=== PATIENT | male | born 1955 | race Caucasian/White ===

== ENCOUNTER 2020-08-20 06:43 | Outpatient (REF) | payer BC, SELFPAY ==
[2020-08-20 07:21] LABS: MANUAL DIFF FLAG NO
[2020-08-20 07:34] LABS: Basophils Percent Auto 0.7 % (0-2); Eosinophils Absolute Auto 0.1 X10*3/uL (0.0-0.4); Eosinophils Percent Auto 1.5 % (0-4); Hematocrit 41.6 % (42-52); Hemoglobin 14.3 g/dl (14.0-18.0); Imm Gran Abs Auto 0.02 X10*3/uL (0.00-0.03); Imm Gran Pct Auto 0.3 % (0.0-0.4); Lymphocytes Absolute Auto 1.5 X10*3/uL (1.2-4.9); Lymphocytes Percent Auto 24.9 % (20-40); Mean Corpuscular HGB Conc 34.4 g/dl (31.0-36.0); Mean Corpuscular Hemoglobin 32.1 pg (27.0-33.0); Mean Corpuscular Volume 93.3 fL (80-98); Mean Platelet Volume 10.2 fL (9.4-12.4); Monocytes Absolute Auto 0.6 X10*3/uL (0.1-1.2); Monocytes Percent Auto 10.6 % (2-11); Neutrophils Absolute Auto 3.6 X10*3/uL (2.0-8.3); Platelet Count 241 X10*3/uL (160-400); Red Blood Count 4.46 X10*6/uL (4.60-5.80); White Blood Count 5.8 X10*3/uL (4.8-10.8)
[2020-08-20 08:02] LABS: Alanine Aminotransferase 31 U/L (0-40); Albumin Level 4.3 g/dL (3.5-5.0); Alkaline Phosphatase 45 U/L (39-117); Anion Gap 10 (12-20); Aspartate Amino Transferase 20 U/L (5-37); Bilirubin Total 0.8 mg/dL (0.0-1.0); Blood Urea Nitrogen 16 mg/dL (9-16); Calcium 9.3 mg/dL (8.4-10.2); Carbon Dioxide 28 mmol/L (22-29); Chloride 105 mmol/L (96-108); Cholesterol 234 mg/dL; Estimated Glomerular Filt Rate > 60; Glucose Fasting 113 mg/dL (60-99); HDL Cholesterol 46 mg/dL; LDL Cholesterol Calculated 160 mg/dl; Potassium 4.1 mmol/l (3.3-5.1); Sodium 139 mmol/L (135-145); Total Protein 6.4 g/dL (6.5-8.0); Triglycerides 141 mg/dL
[2020-08-20 08:24] LABS: Thyroid Stimulating Hormone 2.03 mIU/mL (0.32-4.0)
[2020-08-20 10:31] LABS: Estimated Average Glucose 114 mg/dL; Hemoglobin A1c % 5.6 %
== END 2020-08-20 06:44 | disposition home or self-care (01) ==
LOC: HO.LAB 06:43
PROVIDERS: PCP Physician Assistant; Visit Provider Physician Assistant
DX: R73.01 Impaired fasting glucose (principal); E78.00 Pure hypercholesterolemia, unspecified
CPT/HCPCS: 36415; 80053; 80061; 83036; 84443; 85025

== ENCOUNTER 2021-02-15 06:38 | Outpatient (REF) | payer BC, SELFPAY ==
[2021-02-15 07:29] LABS: Alanine Aminotransferase 26 U/L (0-40); Albumin Level 4.3 g/dL (3.5-5.0); Alkaline Phosphatase 49 U/L (39-117); Anion Gap 13 (12-20); Aspartate Amino Transferase 18 U/L (5-37); Bilirubin Total 0.6 mg/dL (0.0-1.0); Blood Urea Nitrogen 19 mg/dL (9-16); Calcium 9.2 mg/dL (8.4-10.2); Carbon Dioxide 26 mmol/L (22-29); Chloride 105 mmol/L (96-108); Cholesterol 233 mg/dL; Estimated Glomerular Filt Rate > 60; Glucose Fasting 111 mg/dL (60-99); HDL Cholesterol 46 mg/dL; LDL Cholesterol Calculated 144 mg/dl; Potassium 4.1 mmol/L (3.3-5.1); Sodium 140 mmol/L (135-145); Total Protein 6.8 g/dL (6.5-8.0); Triglycerides 216 mg/dL
[2021-02-15 07:50] LABS: Prostate Specific Antigen Scr 4.11 ng/mL (<0.05-4.0)
== END 2021-02-15 06:39 | disposition home or self-care (01) ==
LOC: HO.LAB 06:38
PROVIDERS: PCP Physician Assistant; Visit Provider Physician Assistant
DX: I10 Essential (primary) hypertension (principal); E78.00 Pure hypercholesterolemia, unspecified; E78.5 Hyperlipidemia, unspecified; Z12.5 Encounter for screening for malignant neoplasm of prostate
CPT/HCPCS: 36415; 80053; 80061; 84153

== ENCOUNTER 2021-10-04 06:30 | Outpatient (REF) | payer BC, SELFPAY ==
[2021-10-04 07:42] LABS: Estimated Average Glucose 117 mg/dL; Hemoglobin A1c % 5.7 %
[2021-10-04 07:58] LABS: Alanine Aminotransferase 26 U/L (0-40); Albumin Level 4.2 g/dL (3.5-5.0); Alkaline Phosphatase 56 U/L (39-117); Anion Gap 8 (12-20); Aspartate Amino Transferase 17 U/L (5-37); Bilirubin Total 0.3 mg/dL (0.0-1.0); Blood Urea Nitrogen 16 mg/dL (9-16); Calcium 9.3 mg/dL (8.4-10.2); Carbon Dioxide 31 mmol/L (22-29); Chloride 105 mmol/L (96-108); Cholesterol 238 mg/dL; Estimated Glomerular Filt Rate > 60; Glucose Fasting 111 mg/dL (60-99); HDL Cholesterol 50 mg/dL; LDL Cholesterol Calculated 167 mg/dl; Potassium 4.4 mmol/L (3.3-5.1); Sodium 140 mmol/L (135-145); Total Protein 6.5 g/dL (6.5-8.0); Triglycerides 105 mg/dL
[2021-10-04 08:05] LABS: Prostate Specific Antigen Scr 4.42 ng/mL (<0.05-4.0); TSH reflex Free T4 2.44 uIU/mL (0.32-4.0)
== END 2021-10-04 06:31 | disposition home or self-care (01) ==
LOC: HO.LAB 06:30
PROVIDERS: PCP Physician Assistant; Visit Provider Physician Assistant
DX: E78.00 Pure hypercholesterolemia, unspecified (principal); R73.09 Other abnormal glucose; Z12.5 Encounter for screening for malignant neoplasm of prostate
CPT/HCPCS: 36415; 80053; 80061; 83036; 84153; 84443

== ENCOUNTER 2022-02-08 09:03 | Day surgery (SDC) | payer BC, SELFPAY ==
--- NOTE | 2022-02-07 08:12 | HO.ANESPROP2 ---
Documented by User: Ni Rhodes NP 02/07/22 08:13 HPI - Anesthesia Eval Consult details Narrative: 66yo M for Colonoscopy PMFSH Active Problems Active Problems: All Active Problems (Updated 02/03/22 @ 11:06 by Leia Shelton RN) Hypercholesteremia (Acute) Screening PSA (prostate specific antigen) (Acute) Annual physical exam (Acute) Impaired glucose metabolism (Acute) Elevated PSA (Acute) Past Medical History Medical History (Updated 02/08/22 @ 09:15 by Miriam Correa RN) BPH (benign prostatic hyperplasia) Sleep apnea with use of continuous positive airway pressure (CPAP) Family History Family History Father CAD (coronary artery disease) Mother Heart palpitations Surgical History Surgical History (Updated 02/03/22 @ 11:06 by Leia Shelton RN) Cataract, left eye History of basal cell carcinoma excision Hx of colonoscopy S/P laparoscopic hernia repair Social History Social History Housing: House Alcohol intake: current Alcohol intake frequency: holidays/special occasions only Patient Tobacco Use Status: Former Tobacco user Tobacco use type: Cigarette e-Cigarette/Vaping Use: Never Used Use of substances other than those prescribed or required for medical reasons: No Are you DNR?: No Advance Directives: No Advance Directives Information Provided: Yes Recently lost weight without trying: No Current occupational status: employed Current occupation: [employer] Meds Allergies Allergy/AdvReac Type Severity Reaction Status Date / Time Penicillins Allergy Mild RASH Verified 02/03/22 11:06 Exam Exam Date and Time: February 07, 2022 0812 Pertinent Lab Results Pertinent Lab Results: Laboratory Tests 08/20/20 10/04/21 06:51 06:34 WBC 5.8 Hgb 14.3 Hct 41.6 L Plt Count 241 Sodium 140 Potassium 4.4 Chloride 105 Carbon Dioxide 31 H BUN 16 Creatinine 0.82 Assessment and Plan Assessment Anesthesia Assessment: Chart Reviewed Documented by User: Klarissa Pearce MD 02/08/22 09:32 [facility] Past Medical History Medical History (Updated 02/08/22 @ 09:15 by Miriam Correa, YAJAIRA) BPH (benign prostatic hyperplasia) Sleep apnea with use of continuous positive airway pressure (CPAP) Family History Family History Father CAD (coronary artery disease) Mother Heart palpitations Family history of problems with anesthesia: No Surgical History Surgical History (Updated 02/03/22 @ 11:06 by Leia Shelton RN) Cataract, left eye History of basal cell carcinoma excision Hx of colonoscopy S/P laparoscopic hernia repair History of Problems with Anesthesia: No Social History Social History Housing: House Alcohol intake: current Alcohol intake frequency: holidays/special occasions only Patient Tobacco Use Status: Former Tobacco user Tobacco use type: Cigarette e-Cigarette/Vaping Use: Never Used Use of substances other than those prescribed or required for medical reasons: No Are you DNR?: No Advance Directives: No Advance Directives Information Provided: Yes Recently lost weight without trying: No Current occupational status: employed Current occupation: [employer] Allergies Allergy/AdvReac Type Severity Reaction Status Date / Time Penicillins Allergy Mild RASH Verified 02/03/22 11:06 Exam Airway Mallampati Class: II TM Dist: >3cm Neck ROM: Full Heart: rrr Lungs: cta Assessment and Plan Assessment Anesthesia Assessment: Anesthesia Plan Discussed and Chart Reviewed Final Anesthetic Review Family History of Problems with Anesthesia: No History of Problems with Anesthesia: No NPO: Yes ASA Class: II Final Preanesthetic Review: No Changes in Pt Med Stat, Meds/Allgs Chart Reviewed and Consent Obtained/Reviewed Patient Risk: Intermediate Procedure Risk: Intermediate Anesthetic Plan Anesthetic Plan: MAC: Disposition: Standard PACU
[2022-02-08 09:10] VITALS: BMI 28.7
[2022-02-08 09:21] VITALS: BP 146/75; PULSE 58; RESP 16; TEMP 36.3; O2SAT 98
[2022-02-08] MEDS: Lactated Ringers 1,000 ML 100 ML IVCONT (09:32)
[2022-02-08 11:30] VITALS: BP 114/63; PULSE 60; RESP 16; TEMP 36.6; O2SAT 97
--- NOTE | 2022-02-08 11:30 | P.BOP_ITS ---
Brief Operative Note Date of Service: 02/08/22 Pre-op diagnosis: Screening Post-op diagnosis: other (Diverticulosis) Procedure: Colonoscopy to the cecum and TI Surgeon: Sd Murillo Anesthesia: MAC Was an Telecommunications Clerk used for this Procedure?: No Estimated blood loss (mL): 0 Pathology: none sent Condition: stable Disposition: PACU
[2022-02-08 11:45] VITALS: BP 123/67; PULSE 68; RESP 18; O2SAT 97
--- NOTE | 2022-02-08 12:06 | OP_ITS ---
SURGEON: Sd Murillo MD INDICATIONS: The patient presents for evaluation of colorectal cancer screening and personal history of tubular adenoma of the colon. Full consent was obtained from him for this, including risks of bleeding and perforation. PREOPERATIVE DIAGNOSIS: POSTOPERATIVE DIAGNOSIS: PROCEDURE PERFORMED: ESTIMATED BLOOD LOSS: COMPLICATIONS: ANESTHESIA: Monitored anesthesia care. ASSISTANTS: SPECIMENS: PROCEDURE: Colonoscopy to cecum and terminal ileum. PREOPERATIVE DIAGNOSES: Colorectal cancer screening and personal history of tubular adenoma of the colon. POSTOPERATIVE DIAGNOSES: Colorectal cancer screening and personal history of tubular adenoma of the colon, diverticulosis, and internal hemorrhoids. DESCRIPTION OF PROCEDURE: The patient was placed in the left lateral decubitus position. The digital rectal exam revealed no abnormalities. The Olympus video pediatric colonoscope was entered into the rectum and advanced easily to the cecum. Once in the cecum, I did identify normal-appearing cecal pouch with appendiceal orifice and a normal-appearing ileocecal valve. The terminal ileum was cannulated and appeared normal. The scope was withdrawn back in the colon. The entire cecum and ileocecal valve appeared normal. Scope was slowly withdrawn assessing all mucosal surfaces carefully. Preparation was excellent. I did not visualize any sign of polyps, colitis, nor angiodysplasia. There was mild amount of sigmoid diverticulosis. In the rectum, scope was retroflexed visualizing internal hemorrhoids, but no other pathology. The rectal mucosa appeared normal. The scope was straightened and withdrawn from the patient. He tolerated the procedure well and was returned to recovery area in stable condition. IMPRESSION: 1. Sigmoid diverticulosis. 2. Internal hemorrhoids. PLAN: I would recommend a repeat colonoscopy in 5 years for further screening. He will otherwise see me again on a p.r.n. basis. MD TARAS June/SOILA / [phone]
== END 2022-02-08 12:47 | disposition home or self-care (01) ==
PROVIDERS: PCP Physician Assistant; Visit Provider Internal Medicine
PROC: 0DJD8ZZ Inspection of Lower Intestinal Tract, Via Natural or Artificial Opening Endoscopic (ICD-10-PCS; CPT 45378; principal; 2022-02-08 10:10)
DX: Z12.11 Encounter for screening for malignant neoplasm of colon (principal); Z86.010 Personal history of colon polyps; K57.30 Diverticulosis of large intestine without perforation or abscess without bleeding; K64.8 Other hemorrhoids; N40.0 Benign prostatic hyperplasia without lower urinary tract symptoms; G47.33 Obstructive sleep apnea (adult) (pediatric); Z99.89 Dependence on other enabling machines and devices; Z79.899 Other long term (current) drug therapy; Z88.0 Allergy status to penicillin; Z85.820 Personal history of malignant melanoma of skin; Z87.891 Personal history of nicotine dependence
CPT/HCPCS: 45378

== ENCOUNTER 2022-08-01 06:39 | Outpatient (REF) | payer BC, SELFPAY ==
[2022-08-01 07:38] LABS: Estimated Average Glucose 114 mg/dL; Hemoglobin A1c % 5.6 %; Total Hemoglobin (HGBA1C) 3810.3569 umol/L
[2022-08-01 07:53] LABS: Alanine Aminotransferase 42 U/L (0-40); Albumin Level 4.2 g/dL (3.5-5.0); Alkaline Phosphatase 52 U/L (39-117); Anion Gap 12 (12-20); Aspartate Amino Transferase 20 U/L (5-37); Bilirubin Total 0.7 mg/dL (0.0-1.0); Blood Urea Nitrogen 16 mg/dL (9-16); Calcium 9.2 mg/dL (8.4-10.2); Carbon Dioxide 26 mmol/L (22-29); Chloride 106 mmol/L (96-108); Cholesterol 259 mg/dL; Estimated Glomerular Filt Rate > 60; Glucose Fasting 119 mg/dL (60-99); HDL Cholesterol 48 mg/dL; LDL Cholesterol Calculated 181 mg/dl; Potassium 4.4 mmol/L (3.3-5.1); Sodium 140 mmol/L (135-145); Total Protein 6.8 g/dL (6.5-8.0); Triglycerides 151 mg/dL
[2022-08-01 08:22] LABS: Prostate Specific Antigen Scr 4.98 ng/mL (<0.05-4.0)
== END 2022-08-01 06:40 | disposition home or self-care (01) ==
LOC: HO.LAB 06:39
PROVIDERS: PCP Physician Assistant; Visit Provider Physician Assistant
DX: Z12.5 Encounter for screening for malignant neoplasm of prostate (principal); R73.09 Other abnormal glucose; E78.00 Pure hypercholesterolemia, unspecified
CPT/HCPCS: 36415; 80053; 80061; 83036; 84153

== ENCOUNTER 2023-04-03 06:26 | Outpatient (REF) | payer BC, SELFPAY ==
[2023-04-03 07:41] LABS: Hematocrit 42.6 % (42.0-52.0); Hemoglobin 14.6 g/dl (14.0-18.0); Mean Corpuscular HGB Conc 34.3 g/dl (31.0-36.0); Mean Corpuscular Hemoglobin 31.1 pg (27.0-33.0); Mean Corpuscular Volume 90.8 fL (80.0-98.0); Mean Platelet Volume 9.7 fL (9.4-12.4); Platelet Count 270 X10*3/uL (160-400); Red Blood Count 4.69 X10*6/uL (4.60-5.80); Red Cell Distribution Width 12.7 % (11.0-16.0); White Blood Count 6.3 X10*3/uL (4.8-10.8)
[2023-04-03 08:28] LABS: Alanine Aminotransferase 38 U/L (0-40); Alkaline Phosphatase 57 U/L (39-117); Anion Gap 14 (12-20); Aspartate Amino Transferase 24 U/L (5-37); Bilirubin Total 0.8 mg/dL (0.0-1.0); Blood Urea Nitrogen 18 mg/dL (9-16); Calcium 9.3 mg/dL (8.4-10.2); Carbon Dioxide 26 mmol/L (22-29); Chloride 106 mmol/L (96-108); Cholesterol 241 mg/dL; Estimated Glomerular Filt Rate > 60; Glucose Fasting 120 mg/dL (60-99); HDL Cholesterol 45 mg/dL; LDL Cholesterol Calculated 164 mg/dl; Potassium 4.6 mmol/L (3.3-5.1); Sodium 141 mmol/L (135-145); Total Protein 6.3 g/dL (6.5-8.0); Triglycerides 163 mg/dL
[2023-04-03 08:29] LABS: Prostate Specific Antigen Scr 5.38 ng/mL (<0.05-4.0); TSH reflex Free T4 2.46 uIU/mL (0.32-4.0)
== END 2023-04-03 06:27 | disposition home or self-care (01) ==
LOC: HO.LAB 06:26
PROVIDERS: PCP Physician Assistant; Visit Provider Physician Assistant
DX: Z12.5 Encounter for screening for malignant neoplasm of prostate (principal); R97.20 Elevated prostate specific antigen [PSA]; E78.00 Pure hypercholesterolemia, unspecified
CPT/HCPCS: 36415; 80053; 80061; 84153; 84443; 85027

== ENCOUNTER 2023-05-28 12:51 | Outpatient (AMB) | payer BC, SELFPAY ==
--- NOTE | 2023-05-28 13:03 | A.OFFVIS_ITS ---
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 05/28/23-- The patient complains having urinary symptoms of urgency and weak stream. Denies dysuria, or gross hematuria PSA results reviewed--05/04/23-- 5.38; 08/01/23-- 4.98. AUA symptom score: 13. Prostate exam: moderately enlarged and a nodular area noted at the right apex. Plan: Tamsulosin 0.4 mg QD was ordered. Prostate biopsy discussed to be scheduled. Cipro 500 mg BID a day before the procedure Valium 5 mg prescribed, patient instructed to bring med to office and take 15 min prior to procedure. Risks of prostate biopsy including infections and bleeding were explained to the patient. [facility] Medical History BPH (benign prostatic hyperplasia) Sleep apnea with use of continuous positive airway pressure (CPAP) Surgical History Cataract, left eye History of basal cell carcinoma excision Hx of colonoscopy S/P laparoscopic hernia repair Family History Father CAD (coronary artery disease) Mother Heart palpitations Social History Housing: House Alcohol intake: current Alcohol intake frequency: holidays/special occasions only Patient Tobacco Use Status: Former Tobacco user Tobacco use type: Cigarette e-Cigarette/Vaping Use: Never Used Current occupational status: employed Current occupation: [employer] Cognitive needs: No Hearing needs: No Vision needs: No Review of Systems Const All systems reviewed & are unremarkable except as noted in HPI and below Reports no additional complaints Eyes Reports no additional complaints ENT Denies neck pain Card Denies leg edema Resp Denies cough GI Denies constipation Musc Reports no additional complaints and Denies neck pain Skin/Breast Denies rash and Denies unusual bruising Neuro Reports no additional complaints Psych Reports no additional complaints Endo Reports no additional complaints Poncho/Lymph Reports no additional complaints Aller/Immun Reports no additional complaints Physical Exam Const General: healthy appearing, no acute distress and well developed Orientation/consciousness: patient oriented x3 Eyes Conjunctivae: conjunctivae normal Neck Neck: Yes normal visual inspection Chest Chest palpation & inspection: normal inspection of the chest Resp Effort & Inspection: normal respiratory effort Cardio Rate: regular rate GI Inspection: Yes normal to inspection Palpation (GI): Soft to palpation Other: Prostate Exam: moderately enlarged, nodular area right apex Skin General skin exam: no rashes or lesions noted Neuro General: patient oriented x3 Extrem General: No pedal edema Psych Appearance: grossly normal Affect: normal affect Office Procedures Post Void Residual Post Residual Void Post Void Residual (PVR): 12 [id number] Void Residual by ultrasound Results AMB Urinalysis, Automated UA Leukoctes 0 Aleisha/uL Last Edit by ANALI Melendez on 05/28/23 14:00 UA Nitrite Negative Last Edit by ANALI Melendez on 05/28/23 14:00 UA Urobilinogen 0.2 mg/dL Last Edit by ANALI Melendez on 05/28/23 14:0 0 UA Protein 0 mg/dL Last Edit by ANALI Melendez on 05/28/23 14:00 UA pH 6.0 Last Edit by ANALI Melendez on 05/28/23 14:00 UA Blood 0 Elmer/uL Last Edit by ANALI Melendez on 05/28/23 14:00 UA Specific [place] 1.030 Last Edit by ANALI Melendez on 05/28/23 14: 00 UA Ketone Negative Last Edit by ANALI Melendez on 05/28/23 14:00 UA Bilirubin 0 mg/dL Last Edit by ANALI Melendez on 05/28/23 14:00 UA Glucose 0 mg/dL Last Edit by ANALI Melendez on 05/28/23 14:00 Results Reviewed Results Reviewed: Laboratory Last Values Urine pH (Auto) 6.0 05/28/23 13:54 Specific [place] (Auto) 1.030 05/28/23 13:54 Urine Protein (Auto) 0 mg/dL 05/28/23 13:54 Glucose (UA)(Auto) 0 mg/dL 05/28/23 13:54 Urine Ketones (Auto) Negative 05/28/23 13:54 Urine Blood (Auto) 0 Elmer/uL 05/28/23 13:54 Urine Nitrite (Auto) Negative 05/28/23 13:54 Urine Bilirubin (Auto) 0 mg/dL 05/28/23 13:54 Urine Urobilinogen (Auto) 0.2 mg/dL 05/28/23 13:54 Leukocyte Esterase (Auto) 0 Aleisha/uL 05/28/23 13:54 Assessment & Plan Assessment & Plan (1) Elevated PSA: Code(s): R97.20 - Elevated prostate specific antigen [PSA] (2) BPH loc w urin obs/LUTS: Code(s): N40.1 - Benign prostatic hyperplasia with lower urinary tract symptoms Plan Tamsulosin 0.4 mg QD was ordered. Prostate biopsy discussed to be scheduled. Cipro 500 mg BID a day before the procedure Valium 5 mg prescribed, patient instructed to bring med to office and take 15 min prior to procedure. Risks of prostate biopsy including infections and bleeding were explained to the patient. Orders: Orders AMB Post Void Residual by ultrasound 05/28/23 N39.8 - Other specified disorders of urinary system AMB Urinalysis Automated 05/28/23 Z13.9 - Encounter for screening, unspecified Medications: New ciprofloxacin HCl start one day prior to prostate biopsy and continue to complete 5 day course 500 mg PO BID 10 tabs 0RF diazepam (Valium) Bring to hospital and take in the waiting room prior to prostate biopsy 5 mg PO ONCE 1 tab 0RF tamsulosin 0.4 mg PO BEDTIME 90 caps 2RF Patient Instructions: The patient had an opportunity to ask questions regarding treatment plan. All questions were answered. Laboratory studies and physical exam results were discussed and reviewed in detail. No major barriers to understanding were identified. The patient expressed understanding and agreement with the above treatment plan. The patient is aware they should contact our office by phone for worsening of their current condition or the appearance of new symptoms. Compliance is encouraged with any medications and followup testing that is ordered. It is a privilege to be allowed the opportunity to participate in the urologic care of your patient. If you have any questions or concerns regarding treatment for the above conditions please do not hesitate to contact me. The office telephone contact is [phone]. This note is constructed in part using voice recognition software. While every effort has been made to ensure accuracy general internal medicine doctor errors may have been included. Yours sincerely, Coding Level of Care Code New Pt Level 4 (20308) Diagnoses Elevated PSA R97.20 BPH loc w urin obs/LUTS N40.1 CPT Codes Post Residual Void - PVR CPT Code: 60840-Euvs Void Residual by ultrasound ([id number])
== END 2023-05-28 13:47 | disposition home or self-care (01) ==
PROVIDERS: PCP Physician Assistant; Visit Provider Urology
DX: R97.20 Elevated prostate specific antigen [PSA] (principal); N40.1 Benign prostatic hyperplasia with lower urinary tract symptoms
CPT/HCPCS: 99204

== ENCOUNTER → 2023-05-28 12:51 | Outpatient (BNVA) | payer BC, SELFPAY | PROVIDERS: PCP Physician Assistant; Visit Provider Urology | DX: R97.20 Elevated prostate specific antigen [PSA] (principal); N40.1 Benign prostatic hyperplasia with lower urinary tract symptoms; R35.0 Frequency of micturition; R39.12 Poor urinary stream | CPT/HCPCS: 51798 ==

== ENCOUNTER 2023-08-18 07:10 | Outpatient (REF) | payer BC, SELFPAY ==
[2023-08-18 07:33] LABS: Hemoglobin 15.1 g/dl (14.0-18.0); Mean Corpuscular HGB Conc 34.3 g/dl (31.0-36.0); Mean Corpuscular Hemoglobin 31.3 pg (27.0-33.0); Mean Corpuscular Volume 91.3 fL (80.0-98.0); Mean Platelet Volume 9.8 fL (9.4-12.4); Platelet Count 254 X10*3/uL (160-400); Red Blood Count 4.82 X10*6/uL (4.60-5.80); Red Cell Distribution Width 12.2 % (11.0-16.0); White Blood Count 6.5 X10*3/uL (4.8-10.8)
[2023-08-18 07:45] LABS: Estimated Average Glucose 120 mg/dL; Hemoglobin A1c % 5.8 % (<6.0)
[2023-08-18 08:00] LABS: Alanine Aminotransferase 28 U/L (0-40); Albumin Level 4.1 g/dL (3.5-5.0); Alkaline Phosphatase 56 U/L (39-117); Anion Gap 16 (12-20); Aspartate Amino Transferase 22 U/L (5-37); Bilirubin Total 0.5 mg/dL (0.0-1.0); Blood Urea Nitrogen 17 mg/dL (9-16); Calcium 9.7 mg/dL (8.4-10.2); Carbon Dioxide 23 mmol/L (22-29); Chloride 108 mmol/L (96-108); Cholesterol 226 mg/dL (<200); Estimated Glomerular Filt Rate > 60; Glucose Fasting 116 mg/dL (60-99); HDL Cholesterol 47 mg/dL (>40); LDL Cholesterol Calculated 157 mg/dL (<100); Potassium 4.2 mmol/L (3.3-5.1); Sodium 143 mmol/L (135-145); Total Protein 6.7 g/dL (6.5-8.0); Triglycerides 112 mg/dL (<150)
[2023-08-18 08:21] LABS: Prostate Specific Antigen Scr 5.29 ng/mL (<0.05-4.0)
== END 2023-08-18 07:11 | disposition home or self-care (01) ==
LOC: HO.LAB 07:10
PROVIDERS: PCP Physician Assistant; Visit Provider Physician Assistant
DX: Z12.5 Encounter for screening for malignant neoplasm of prostate (principal); R73.09 Other abnormal glucose; E78.00 Pure hypercholesterolemia, unspecified
CPT/HCPCS: 36415; 80053; 80061; 83036; 84153; 85027

== ENCOUNTER 2023-08-23 13:15 | Outpatient (AMB) | payer BC, SELFPAY ==
--- NOTE | 2023-08-23 13:19 | MHC.PC.OV ---
Vital Signs 08/23/23 13:20 Height 5 ft 6 in Weight 204 lb 4 oz BMI 33.0 BP 100/64 Blood Pressure Location Lt brachial Position Sitting Pulse 59 Pulse Source Pulse Oximeter Pulse Oximetry (%) 96 Oxygen Delivery Method Room Air Intake Visit Reasons: PE Intake Note: Patient is here today for a physical. Grape Cutter Required: No Funeral Planner: Not Required per policy Accompanied by: Self / Same As Patient Allergies Penicillins Allergy (Mild, Verified 08/23/23 13:20) RASH Tobacco use date assessed: 08/23/23 Fall risk assessment: No Falls in past year Last assessed Fall Risk: 08/23/23 Dental Screening Dental Screen Date: 08/23/23 Did you have a dental visit in the last 12 months?: Yes Did you have a dental problem in the last 6 months where you did not have access to dental care?: No Was dental information given to patient?: Patient has dentist HPI PE HPI Details Patient is a 68-year-old male here today for a routine annual physical .? Patient has a past medical history significant for IGM, hypercholesterolemia sleep disturbance, obesity, osteoarthritis of the knees. .. Hypercholesterolemia:? Most recent lipid panel? somewhat improved though still remains borderline high. He has lost a few lb since last office visit and has been watching his diet. .. ? Impaired glucose metabolism: Most recent fasting blood sugars slightly elevated though improved, A1c of 5.8. patient continues to work on reducing carbs and sugary foods. . Obesity: BMI remains above 30. He does report being as physically active and watching his portions of food. . Elevated PSA :? Patient's PSA has been gradually elevating over last 4 years.? Does report urinary frequency and nocturia. Now followed by Urology and is anticipating prostate biopsy. Has tried tamsulosin though felt it was ineffective. Colon cancer screen: Colonoscopy done in 2021 -repeat 5 years .. Vaccine : Up-to-date with tetanus, up-to-date with COVID vaccine. Needs pneumonia and flu vaccine Laboratory Tests 08/01/22 04/03/23 04/03/23 06:52 06:32 06:32 RBC Fasting Glucose 120 H Hemoglobin A1c % 5.6 Cholesterol 241 LDL Cholesterol, C alc PSA Screen 04/03/23 04/03/23 08/18/23 06:32 06:32 07:19 RBC Fasting Glucose Hemoglobin A1c % 5.8 Cholesterol LDL Cholesterol, C alc 164 PSA Screen 5.38 H 08/18/23 08/18/23 08/18/23 07:19 07:19 07:19 RBC 4.82 Fasting Glucose Hemoglobin A1c % Cholesterol 226 H LDL Cholesterol, C alc 157 H PSA Screen 5.29 H 08/18/23 07:19 RBC Fasting Glucose 116 H Hemoglobin A1c % Cholesterol LDL Cholesterol, C alc PSA Screen PFS Medical History Sleep apnea with use of continuous positive airway pressure (CPAP) BPH (benign prostatic hyperplasia) Surgical History Hx of colonoscopy Cataract, left eye History of basal cell carcinoma excision S/P laparoscopic hernia repair Family History Father CAD (coronary artery disease) Mother Heart palpitations Social History Housing: House Alcohol intake: current Alcohol intake frequency: holidays/special occasions only Patient Tobacco Use Status: Former Tobacco user Tobacco use type: Cigarette e-Cigarette/Vaping Use: Never Used Second Hand Smoke Exposure: Yes service: No Current occupational status: employed Current occupation: [employer] Cognitive needs: No Hearing needs: No Vision needs: No Questionnaire Thrive Questionnaire Date Thrive assessed: 04/19/23 EBONIE-7 AMB Questionnaire EBONIE-7 Date EBONIE - 7 assessed: 04/19/23 Source: Developed by Drs. Sd May, Evie Mccann, Reuben Haddad and colleagues, with an educational noé from [employer]. Review of Systems Const Denies body aches, Denies chills, Denies excessive sweating, Denies fatigue, Denies fever(s) and Denies headache(s) Eyes Denies blurry vision ENT Denies dysphagia, Denies vertigo, Denies dizziness, Denies headache(s), Denies hearing loss and Denies tinnitus Card Denies chest pain, Denies chest pain with activity, Denies syncope, Denies irregular heart rhythm and Denies dyspnea Resp Denies chest congestion, Denies cough, Denies hemoptysis, Denies dyspnea and Denies wheezing GI Denies abdominal pain, Denies melena, Denies hematochezia, Denies coffee ground emesis, Denies dysphagia, Denies diarrhea, Denies nausea and Denies vomiting Denies difficulty urinating, Denies dysuria, Denies urinary frequency, Denies urinary hesitancy and Denies urinary urgency Musc Denies arthralgias, Denies limited range of motion, Denies muscle cramps and Denies muscle weakness Skin/Breast Denies rash and Denies skin ulcer Neuro Denies Abnormal speech present, Denies confusion, Denies vertigo, Denies dizziness, Denies syncope, Denies headache(s), Denies memory loss and Denies seizure-like activity Psych Denies anxiety, Denies confusion, Denies depression, Denies memory loss, Denies panic attacks and Denies paranoia Endo Denies excessive sweating, Denies fatigue, Denies flushing, Denies polydipsia and Denies polyuria Aller/Immun Denies wheezing Physical exam (Primary Care) Vital Signs: Last Vital Signs Pulse 59 08/23/23 13:20 BP 100/64 08/23/23 13:20 Pulse Ox 96 08/23/23 13:20 Oxygen Delivery Method Room Air 08/23/23 13:20 BMI result Body Mass Index 33.0 BMI Assessment/Plan discussion: High Tobacco/Smoking Status: Tobacco use Status Tobacco use date assessed 08/23/23 08/23/23 13:23 Patient Tobacco Use Status Former Tobacco user 08/23/23 13:23 Tobacco use type Cigarette 08/23/23 13:23 e-Cigarette/Vaping Use Never Used 08/23/23 13:23 Thrive Assessment: Date of Thrive Assessment Date Thrive assessed 04/19/23 08/23/23 13:23 Const Other: OBESE General: cooperative, comfortable, no acute distress, alert and awake; No confusion Orientation/consciousness: oriented to person, oriented to place, patient oriented x3 and No confusion HENMT Head: Yes normocephalic Ears: external ears normal and TM's normal bilaterally Face and sinus: No sinus tenderness Mouth: Normal oral and palatal mucosa present and tongue normal Teeth and gingiva: dentition normal and gingiva normal Throat: Yes posterior oropharynx normal, Yes tonsils normal and Yes uvula midline Eyes Conjunctivae: conjunctivae normal Sclerae: sclerae normal Pupils: Equal, round and reactive pupils present EOM: EOMs intact bilaterally Direct Ophthalmoscopy: No no photophobia Neck Neck: Yes no lymphadenopathy, No tender and Yes no JVD Thyroid: Thyroid normal Carotids: no bruits Chest Chest palpation & inspection: no tenderness Resp Effort & Inspection: normal respiratory effort, no audible wheezes, not labored and no stridor Auscultation: no crackles, no rales, no rhonchi and no wheezes Cardio Jugular venous distension: no JVD Rate: regular rate, not bradycardic and not tachycardic Rhythm: regular rhythm Bruits: no carotid bruits Peripheral pulses: Peripheral pulses 2+ throughout GI Inspection: Yes normal to inspection, No abdominal wall ecchymosis and No visible herniation Palpation (GI): Soft to palpation, nontender, no guarding, not rigid and No hepatosplenomegaly present Auscultation: normoactive bowel sounds General: Yes no CVA tenderness Back/Spine/Pelvis Back: no CVA tenderness and No back tenderness Cervical Spine: cervical ROM normal Thoracic/Lumbar Spine: thoracic and lumbar spine normal to inspection, straight leg raise negative bilaterally, No thoraco-lumbar ROM limited and No lumbar spinal tenderness Skin Lesions: no lesions Rashes: no rashes Wounds: no wounds Neuro General: oriented to person, oriented to place, patient oriented x3, CN's II-XI intact bilaterally and No confusion Cranial nerves: Yes Equal, round and reactive pupils present and Yes Normal accommodation reflex present Cognition (Neuro): normal cognition Speech: No Abnormal speech present Gait exam (Neuro): Normal gait present Motor exam (neuro): 5/5 motor strength present throughout Extrem Right upper extremity: full ROM; no cyanosis Left upper extremity: full ROM; no cyanosis Right lower extremity: no edema Left lower extremity: no edema Psych Appearance: grossly normal Mental Status: mental status grossly normal Affect: normal affect Attitude: cooperative Thought process: Normal thought process present Office Procedures Flu Questionnaire Does the patient have a severe egg allergy?: No Does the patient have severe life threatening allergies?: Yes Does the patient have a fever or illness today?: No Has the patient ever had Guillain-Wagram Syndrome?: No Has the patient ever had any past reaction to a flu shot?: No Comment: ALLERGIC TO PCN Immunizations flu vacc [id number] 6mos up(PF) 60 mcg(15 mcgx4)/0.5 mL IM syringe Performing Provider: Humberto Ayala PA-C [place] [facility] [place] [facility] Administered by: ANALI Figueroa on 08/23/23 13:23 Dose Route Admin Location Dispensed Lot Number Expiration Date [place] [employer] Consultant 0.5 mL IM Left Deltoid 0.5 mL [id number] 05/18/24 [id number] [id number] VIS Given Date VIS Provided VIS Publication Date 08/23/23 Single Vaccine 21 Eligibility Eligibility Date Funding Source Not VFC Eligible 08/23/23 Private pneumoc 20-dell conj-dip cr(PF) 0.5 mL IM syringe Performing Provider: Humberto Ayala PA-C [place] [facility] [place] [facility] Administered by: Vale Lakhani RN on 08/23/23 13:50 Dose Route Admin Location Dispensed Lot Number Expiration Date [place] [employer] Consultant 0.5 mL IM Right Deltoid 0.5 mL [id number] 09/17/24 [id number] [employer] VIS Given Date VIS Provided VIS Publication Date 08/23/23 Single Vaccine 21 Eligibility Eligibility Date Funding Source Not VFC Eligible 08/23/23 Private Assessment and Plan Assessment & Plan (1) Annual physical exam: Code(s): Z00.00 - Encounter for general adult medical examination without abnormal findings (2) Obese: Code(s): E66.9 - Obesity, unspecified Qualifiers: Body mass index: BMI 33.0-33.9 Obesity classification: adult class 1 (BMI 30 - 34.9) Obesity type: due to excess calories Serious obesity comorbidity presence: without serious comorbidity Qualified Code(s): E66.09 - Other obesity due to excess calories; Z68.33 - Body mass index [BMI] 33.0-33.9, adult Plan: Patient does understand his BMI is over 30 will work on being more physically active and adapting to better eating habits to reduce his weight (3) Hypercholesteremia: Code(s): E78.00 - Pure hypercholesterolemia, unspecified Plan: Patient's most recent lipid panel remains borderline high. Not interested in starting medication at this time would like to continue working on lifestyle modifications. Goal LDL to be below 160 (4) Elevated PSA: Code(s): R97.20 - Elevated prostate specific antigen [PSA] Plan: Most recent PSA still elevated. Now seeing urologist and anticipates a prostate biopsy. (5) Impaired glucose metabolism: Code(s): R73.09 - Other abnormal glucose Plan: Patient's most recent blood sugar slightly elevated, he does understand this is in prediabetic range. A1c of 5.8. He is not interested in starting metformin at this time. He would like to work on lifestyle modifications to reduce his sugars Orders: Orders Influenza [id number] Immunization 08/23/23 Z23 - Encounter for immunization Pneumococcal 20 Immunization 08/23/23 Z23 - Encounter for immunization Hemoglobin A1c 6 Months R73.09 - Other abnormal glucose Lipid Panel 6 Months E78.00 - Pure hypercholesterolemia, unspecified Comprehensive [place]. Panel Fast 6 Months E78.00 - Pure hypercholesterolemia, unspecified Coding Level of Care Code Est Pt Prev Care >65y(92320) Diagnoses Annual physical exam Z00.00 Class 1 obesity due to excess calories without serious comorbidity with body mass index (BMI) of 33.0 to 33.9 in adult E66.09; Z68.33 Body mass index: BMI 33.0-33.9 Obesity classification: adult class 1 (BMI 30 - 34.9) Obesity type: due to excess calories Serious obesity comorbidity presence: without serious comorbidity Hypercholesteremia E78.00 Elevated PSA R97.20 Impaired glucose metabolism R73.09
[2023-08-23 13:20] VITALS: BP 100/64; PULSE 59; O2SAT 96; BMI 33.0
== END 2023-08-23 13:52 | disposition home or self-care (01) ==
PROVIDERS: Visit Provider Physician Assistant
DX: Z23 Encounter for immunization (principal)
CPT/HCPCS: 90471; 90472; 90677; 90686; 99397

== ENCOUNTER 2023-09-28 07:13 | Outpatient (REF) | payer BC, SELFPAY ==
[2023-09-28 07:42] VITALS: BMI 30.1
[2023-09-28 07:43] VITALS: BP 168/79; PULSE 55; RESP 16; TEMP 36.3; O2SAT 97
--- NOTE | 2023-09-28 08:23 | W.PM.OPN ---
Operative Note Operative Note Date of Service: 09/28/23 Narrative: PreOperative Diagnosis:? ? Elevated PSA Post Operative Diagnosis:??Elevated PSA Procedure:?1. Transrectal ultrasound guided biopsy of the prostate 12 core 2. Transrectal ultrasound measurement of prostate 3. Transrectal ultrasound guided pudendal nerve block Surgeon:?Dr Rosemarie Pandya Anesthesia:? Local, Valium 5 mg PO Indications for procedure: Elevated PSA- 04/03/23-5.38, 08/18/23--5.29 Procedure: Preoperative antibiotics confirmed. After informed consent was verified the patient was placed on the procedure table in left lateral position. Patient identity confirmed. Safety pause time-out performed. Digital rectal exam performed to dilate rectal sphincter, iodine mixed with lubricant jelly 30 cc placed per rectum. Ultrasound probe was placed per rectum. The prostate was visualized. The prostate was measured width 5.69 cm, height 4.94 cm, length 5.10 cm with a volume of 75.0 mL. An ultrasound guided pudendal nerve block was performed using 10 cc of 1% lidocaine. A 12 core biopsy was performed from the left base, left mid, left apex and right base, mid, apex 2 biopsies from each section. The ultrasound probe was removed and digital palpation of the prostate for 1-2 minutes for hemostasis was performed. The patient tolerated the procedure well. Complications: None
[2023-09-28 08:55] VITALS: BP 174/81; PULSE 64; RESP 16; O2SAT 97
== END 2023-09-28 07:14 | disposition home or self-care (01) ==
LOC: HO.MS 07:13
PROVIDERS: PCP Physician Assistant; Visit Provider Urology
PROC: (CPT 55700; principal; 2023-09-28 08:00)
DX: R97.20 Elevated prostate specific antigen [PSA] (principal)
CPT/HCPCS: 55700; 76942; 88305

== ENCOUNTER → 2023-09-28 07:13 | Outpatient (BNV) | payer BC, SELFPAY | PROVIDERS: PCP Physician Assistant; Visit Provider Urology | DX: R97.20 Elevated prostate specific antigen [PSA] (principal) | CPT/HCPCS: 55700; 76942 ==

== ENCOUNTER 2023-10-10 11:24 | Outpatient (AMB) | payer BC, SELFPAY ==
--- NOTE | 2023-10-10 11:32 | A.OFFVIS_ITS ---
Intake Intake Visit Reasons: Biopsy results Intake Note: Patient is present for Biopsy Results Allergies Penicillins Allergy (Mild, Verified 08/23/23 13:20) RASH HPI HPI Comments History of Present Illness Details Fco is a 68-year-old male who presents today for a follow-up. 10/10/2023-- He is followed today for biopsy results. PSA results from 08/18/2023 revealed 5.29. He is a status post prostate biopsy for elevated PSA which was done on 09/28/2023. Biopsy results were benign. I have reviewed the US results from 09/28/2023 showed the estimated measurement of the prostate was 75 mL. Review of charts: Last visit: 05/28/23-- The patient complains having urinary symptoms of urgency and weak stream. Denies dysuria, or gross hematuria PSA results reviewed--05/04/23-- 5.38; PSA---08/01/23-- 4.98. AUA symptom score: 13. Prostate exam: moderately enlarged and a nodular area noted at the right apex. 10/10/2023: Plan: Continue tamsulosin and ordered Proscar 5 mg daily Follow-up in one year PSA prior. [facility] Medical History Sleep apnea with use of continuous positive airway pressure (CPAP) BPH (benign prostatic hyperplasia) Surgical History Hx of colonoscopy Cataract, left eye History of basal cell carcinoma excision S/P laparoscopic hernia repair Family History Father CAD (coronary artery disease) Mother Heart palpitations Social History Housing: House Alcohol intake: current Alcohol intake frequency: holidays/special occasions only Patient Tobacco Use Status: Former Tobacco user Tobacco use type: Cigarette e-Cigarette/Vaping Use: Never Used Second Hand Smoke Exposure: Yes service: No Current occupational status: employed Current occupation: [employer] Cognitive needs: No Hearing needs: No Vision needs: No Review of Systems Const All systems reviewed & are unremarkable except as noted in HPI and below Reports no additional complaints Eyes Reports no additional complaints ENT Denies neck pain Card Denies leg edema Resp Denies cough GI Denies constipation Musc Reports no additional complaints and Denies neck pain Skin/Breast Denies rash and Denies unusual bruising Neuro Reports no additional complaints Psych Reports no additional complaints Endo Reports no additional complaints Poncho/Lymph Reports no additional complaints Aller/Immun Reports no additional complaints Results Reviewed Results Reviewed: Prostate biopsy 09/28/2023-- Diagnosis Prostate, needle core biopsies: A. Left base lateral: Benign prostatic tissue. B. Left base medial: Benign prostatic tissue. C. Left mid lateral: Benign prostatic tissue. D. Left mid medial: Benign prostatic tissue. E. Left apex lateral: Benign prostatic tissue. F. Left apex medial: Benign prostatic tissue. G. Right base lateral: Benign prostatic tissue. H. Right base medial: Benign prostatic tissue. I. Right mid lateral: Benign prostatic tissue. J. Right mid medial: Benign prostatic tissue. K. Right apex lateral: Benign prostatic tissue. L. Right apex medial: Benign prostatic tissue. Clinical History Elevated PSA Microscopic Description Microscopic sections show multiple needle cores of benign prostatic parenchyma with scattered foci of chronic inflammation throughout. Material Received A: Left base lateral B: Left base medial C: Left mid lateral D: Left mid medial E: Left apex lateral F: Left apex medial G: Right base lateral H: Right base medial I: Right mid lateral J: Right mid medial K: Right apex lateral L: Right apex medial Gross Description A. Received in formalin labeled ?left base lateral? is a glistening fragment of white soft tissue measuring 0.7 cm in length with a diameter of 0.1 cm which is wrapped in lens paper and entirely submitted for microscopic examination, 1 piece in cassette labeled A B. Received in formalin labeled ?left base medial? is a fragment of glistening, translucent white soft tissue measuring 1.0 cm in length with a diameter of 0.1 cm which is wrapped in lens paper and entirely submitted for microscopic examination, 1 piece in cassette labeled B. C. Received in formalin labeled ?left mid lateral? is a fragment of glistening, translucent white soft tissue measuring 1.0 cm in length with a diameter of 0.1 cm which is wrapped in paper and entirely submitted for microscopic examination, 1 piece in cassette labeled C. D. Received in formalin labeled ?left mid medial? is a fragment of glistening, translucent white soft tissue measuring 1.3 cm in length with a diameter of 0.1 cm which is wrapped in lens paper and entirely submitted for microscopic examination, 1 piece in cassette labeled D. E. Received in formalin labeled ?left apex lateral? is a fragment of glistening, translucent leiva white soft tissue measuring 0.9 cm in length with a diameter of 0.1 cm which is wrapped in lens paper and entirely submitted for microscopic examination, 1 piece in cassette labeled E. F. Received in formalin labeled left apex medial? is a fragment of glistening translucent leiva white soft tissue measuring 1.0 cm in length with a diameter of 0.1 cm which is wrapped in lens paper and entirely submitted for microscopic examination, 1 piece in cassette labeled F. G. Received in formalin labeled ?right base lateral? is a fragment of glistening, translucent white soft tissue measuring 1.0 cm in length with a diameter of 0.1 cm which is wrapped in lens paper and entirely submitted for microscopic examination, 1 piece in cassette labeled G. H. Received in formalin labeled ?right base medial? is a fragment of translucent soft white tissue measuring 1.3 cm in length with a diameter of 0.1 cm which is wrapped in lens paper and entirely submitted for microscopic examination, 1 piece in cassette labeled H. I. Received in formalin labeled ?right mid lateral? is a fragment of glistening, translucent white soft tissue measuring 1.5 cm in length with a diameter of 0.1 cm which is wrapped in lens paper and entirely submitted for microscopic examination, 1 piece in cassette labeled I. J. Received in formalin labeled ?right mid medial is a fragment of glistening, translucent white soft tissue measuring 1.6 cm in length with a diameter of 0.1 cm which is wrapped in lens paper and entirely submitted for microscopic examination, 1 piece in cassette labeled J. K. Received in formalin labeled ?right apex lateral? is a fragment of a glistening, translucent white soft tissue measuring 0.8 cm in length with a diameter of 0.1 cm which is wrapped in lens paper and entirely submitted for microscopic examination, 1 piece in cassette labeled K. L. Received in formalin labeled ?right apex medial? are 2 fragments of translucent white soft tissue measuring 0.6 and 1.4 cm in length. Both have a diameter of 0.1 cm. The specimen is wrapped in lens paper and entirely submitted for microscopic examination, 2 pieces in cassette labeled L Assessment & Plan Assessment & Plan (1) Elevated PSA: Code(s): R97.20 - Elevated prostate specific antigen [PSA] (2) BPH loc w urin obs/LUTS: Code(s): N40.1 - Benign prostatic hyperplasia with lower urinary tract symptoms Plan Continue tamsulosin and ordered Proscar 5 mg daily Follow-up in oney year PSA prior. Medications: New finasteride (Proscar) 5 mg PO DAILY 90 tabs 3RF 90 days C61 - Malignant neoplasm of prostate Patient Instructions: The patient had an opportunity to ask questions regarding treatment plan. All questions were answered. Imaging, Laboratory studies and physical exam results were discussed and reviewed in detail. No major barriers to understanding were identified. The patient expressed understanding and agreement with the above treatment plan. The patient is aware they should contact our office by phone for worsening of their current condition or the appearance of new symptoms. Compliance is encouraged with any medications and followup testing that is ordered. It is a privilege to be allowed the opportunity to participate in the urologic care of your patient. If you have any questions or concerns regarding treatment for the above conditions please do not hesitate to contact me. The office telephone contact is [phone]. This note is constructed in part using voice recognition software. While every effort has been made to ensure accuracy seafood manager errors may have been included. Yours sincerely, Rosemarie Pandya MD Coding Level of Care Code Est Pt Level 4 (91472) Diagnoses Elevated PSA R97.20 BPH loc w urin obs/LUTS N40.1
== END 2023-10-10 11:54 | disposition home or self-care (01) ==
PROVIDERS: PCP Physician Assistant; Visit Provider Urology
DX: R97.20 Elevated prostate specific antigen [PSA] (principal); N40.1 Benign prostatic hyperplasia with lower urinary tract symptoms
CPT/HCPCS: 99214

== ENCOUNTER → 2023-10-10 11:24 | Outpatient (BNVA) | payer BC, SELFPAY | PROVIDERS: PCP Physician Assistant; Visit Provider Urology ==

== ENCOUNTER 2024-02-07 06:32 | Outpatient (REF) | payer BC, SELFPAY ==
[2024-02-07 07:29] LABS: Estimated Average Glucose 128 mg/dL; Hemoglobin A1c % 6.1 % (<6.0)
[2024-02-07 07:36] LABS: Alanine Aminotransferase 38 U/L (0-40); Albumin Level 4.1 g/dL (3.5-5.0); Alkaline Phosphatase 64 U/L (39-117); Anion Gap 12 (12-20); Aspartate Amino Transferase 21 U/L (5-37); Bilirubin Total 0.5 mg/dL (0.0-1.0); Blood Urea Nitrogen 18 mg/dL (9-16); Calcium 9.3 mg/dL (8.4-10.2); Carbon Dioxide 26 mmol/L (22-29); Chloride 107 mmol/L (96-108); Cholesterol 243 mg/dL (<200); Estimated Glomerular Filt Rate > 60; Glucose Fasting 127 mg/dL (60-99); HDL Cholesterol 52 mg/dL (>40); LDL Cholesterol Calculated 171 mg/dL (<100); Potassium 3.9 mmol/L (3.3-5.1); Sodium 141 mmol/L (135-145); Total Protein 6.8 g/dL (6.5-8.0); Triglycerides 104 mg/dL (<150)
== END 2024-02-07 06:33 | disposition home or self-care (01) ==
LOC: HO.LAB 06:32
PROVIDERS: PCP Physician Assistant; Visit Provider Physician Assistant
DX: R73.09 Other abnormal glucose (principal); E78.00 Pure hypercholesterolemia, unspecified
CPT/HCPCS: 36415; 80053; 80061; 83036

== ENCOUNTER 2024-03-04 12:48 | Outpatient (AMB) | payer BC, SELFPAY ==
[2024-03-04 12:49] VITALS: BP 138/78; PULSE 58; O2SAT 97; BMI 29.7
--- NOTE | 2024-03-04 12:49 | MHC.PC.OV ---
Vital Signs 03/04/24 12:49 Height 5 ft 10 in Weight 207 lb 0.4 oz BMI 29.7 BP 138/78 Blood Pressure Location Lt brachial Position Sitting Pulse 58 Pulse Source Pulse Oximeter Pulse Oximetry (%) 97 Oxygen Delivery Method Room Air Intake Visit Reasons: f/u IGM/ HLD- Intake Note: Patient is here to follow up Family Practice Physician Assistant Required: No Allergies Penicillins Allergy (Mild, Verified 03/04/24 12:57) RASH Medication List - Last Reconciled 03/04/24 by Humberto Ayala PA-C finasteride (Proscar) 5 mg PO DAILY 90 days metformin ER 500 mg PO DAILY 30 days tamsulosin 0.4 mg PO BEDTIME Tobacco use date assessed: 03/04/24 Fall risk assessment: No Falls in past year Last assessed Fall Risk: 03/04/24 Dental Screening Dental Screen Date: 03/04/24 HPI f/u IGM/ HLD- HPI Details Patient is a 68-year-old male here today for .? Patient has a past medical history significant for IGM, hypercholesterolemia sleep disturbance, obesity, osteoarthritis of the knees. .. Hypercholesterolemia:? Most recent lipid panel? elevated on most recent lipid panel. He admits to some dietary indiscretion.. He is again not interested in starting any medication will like to work on extensively on lifestyle and dietary modifications. He has lost a few lb since last office visit and has been watching his diet recently. .. ? Impaired glucose metabolism: Most recent fasting blood sugars slightly elevated , A1c elevated at 6.1 from 5.8. Again does admit to dietary indiscretion. patient continues to work on reducing carbs and sugary foods. We have prescribed him metformin 500 though he never picked it up from the pharmacy as he is trying to stay off medication. . Obesity: BMI remains above 30. He does report being as physically active and watching his portions of food. . Elevated PSA :? Has seen Urology and underwent prostate biopsy all with benign findings. Continue to follow PSA on a yearly basis. Laboratory Tests 08/18/23 02/07/24 07:19 06:45 Creatinine 0.84 Fasting Glucose 127 H Hemoglobin A1c % 5.8 6.1 H Cholesterol 226 H 243 H LDL Cholesterol, C alc 157 H 171 H PFSH Medical History Sleep apnea with use of continuous positive airway pressure (CPAP) BPH (benign prostatic hyperplasia) Surgical History Hx of colonoscopy Cataract, left eye History of basal cell carcinoma excision S/P laparoscopic hernia repair Family History Father CAD (coronary artery disease) Mother Heart palpitations Social History Housing: House Alcohol intake: current Alcohol intake frequency: holidays/special occasions only Patient Tobacco Use Status: Former Tobacco user Tobacco use type: Cigarette e-Cigarette/Vaping Use: Never Used Second Hand Smoke Exposure: Yes service: No Current occupational status: employed Current occupation: [employer] Cognitive needs: No Hearing needs: No Vision needs: No Questionnaire Thrive Questionnaire Date Thrive assessed: 03/04/24 I am a: Patient What is your living situation today?: I have a steady place to live Within the past 12 months, did the food you bought not last and you didn't have the money to get more?: Never true Within the past 12 months, did you worry whether your food would run out before you got money to buy more?: Never true Do you have trouble paying for medicines?: No Do you have trouble getting transportation to medical appointments?: No Do you have trouble paying your heating and electricity bill?: No Do you have trouble taking care of your child, family member or friend?: No Do you have trouble with day-to-day activities such as bathing, preparing meals, shopping, managing finances, etc.?: No Are you currently unemployed and looking for a job?: No Are you interested in more education?: No Please select the resources that you would like help with: None Currently or been in a relationship where the following occur: no concerns reported THRIVE Score: 0 AUDIT C Alcohol Use Questionnaire (AUDIT-C) 1. How often do you have a drink containing alcohol?: Monthly or less 2. How many drinks containing alcohol do you have on a typical day when you are drinking?: 1 or 2 3. How often do you have six or more drinks on one occasion?: Never Total Score: 1 EBONIE-7 AMB Questionnaire EBONIE-7 Date EBONIE - 7 assessed: 03/04/24 Source: Developed by Drs. Sd May, Evie Mccann, Reuben Haddad and colleagues, with an educational noé from [employer]. Review of Systems Const Denies headache(s) Eyes Denies loss of vision ENT Denies vertigo, Denies dizziness, Denies headache(s) and Denies sore throat Card Denies chest pain, Denies leg edema and Denies lightheadedness Resp Denies cough, Denies hemoptysis and Denies wheezing GI Denies abdominal pain, Denies melena, Denies constipation, Denies diarrhea and Denies vomiting Denies dysuria, Denies urinary frequency and Denies urinary urgency Musc Denies arthralgias, Denies joint swelling, Denies numbness and Denies tingling Neuro Denies Abnormal speech present, Denies behavioral changes, Denies vertigo, Denies dizziness, Denies headache(s), Denies loss of vision, Denies memory loss, Denies numbness and Denies tingling Psych Denies anxiety, Denies behavioral changes, Denies depression, Denies memory loss and Denies panic attacks Poncho/Lymph Denies easy bleeding and Denies easy bruising Aller/Immun Denies wheezing Physical exam (Primary Care) Vital Signs: Last Vital Signs Pulse 58 03/04/24 12:49 BP 138/78 03/04/24 12:49 Pulse Ox 97 03/04/24 12:49 Oxygen Delivery Method Room Air 03/04/24 12:49 BMI result Body Mass Index 29.7 Tobacco/Smoking Status: Tobacco use Status Tobacco use date assessed 03/04/24 03/04/24 12:53 Patient Tobacco Use Status Former Tobacco user 03/04/24 12:53 Tobacco use type Cigarette 03/04/24 12:53 e-Cigarette/Vaping Use Never Used 03/04/24 12:53 Thrive Assessment: Date of Thrive Assessment Date Thrive assessed 03/04/24 03/04/24 12:53 Currently or been in a relationship where the following occur: no concerns reported Const General: healthy appearing, no acute distress, alert and awake Nutritional Appearance: well nourished Orientation/consciousness: oriented to person, oriented to place and oriented to time HENMT Ears: TM's normal bilaterally General nose exam: Normal nasal mucous membranes and turbinates present Eyes Conjunctivae: conjunctivae normal Sclerae: sclerae normal Pupils: Equal, round and reactive pupils present Neck Neck: Yes no lymphadenopathy and Yes no JVD Thyroid: Thyroid normal Carotids: no bruits Resp Effort & Inspection: normal respiratory effort and not tachypneic Auscultation: no crackles, no rales, no rhonchi and no wheezes Cardio Rate: regular rate Rhythm: regular rhythm Heart sounds: no murmurs and normal S1 and S2 GI Palpation (GI): Soft to palpation, nontender, no hepatomegaly and no splenomegaly Auscultation: normal bowel sounds Skin General skin exam: no rashes or lesions noted and dry skin Neuro General: oriented to person, oriented to place and oriented to time Cranial nerves: Yes Equal, round and reactive pupils present Speech: No Abnormal speech present Gait exam (Neuro): Normal gait present Motor exam (neuro): no tremor noted Extrem Right upper extremity: full ROM Left upper extremity: full ROM Right lower extremity: full ROM; no edema Left lower extremity: full ROM; no edema Psych Mental Status: mental status grossly normal Speech and movement: Normal speech and movement present Affect: normal affect Attitude: cooperative Thought process: Normal thought process present Assessment and Plan Assessment & Plan (1) Obese: Code(s): E66.9 - Obesity, unspecified Qualifiers: Body mass index: BMI 33.0-33.9 Obesity classification: adult class 1 (BMI 30 - 34.9) Obesity type: due to excess calories Serious obesity comorbidity presence: without serious comorbidity Qualified Code(s): E66.09 - Other obesity due to excess calories; Z68.33 - Body mass index [BMI] 33.0-33.9, adult Plan: Patient does understand his BMI is over 30 will work on being more physically active and adapting to better eating habits to reduce his weight (2) Hypercholesteremia: Code(s): E78.00 - Pure hypercholesterolemia, unspecified Plan: Patient's most recent lipid panel remains high. Not interested in starting medication at this time would like to continue working on lifestyle modifications. Goal LDL to be below 160 (3) Elevated PSA: Code(s): R97.20 - Elevated prostate specific antigen [PSA] Plan: Has seen urologist and had gotten prostate biopsy. Randy score 0. Continues to have some nocturia though felt that prostate medication were not helpful. (4) Impaired glucose metabolism: Code(s): R73.09 - Other abnormal glucose Plan: Patient's most recent blood sugar slightly elevated, A1c is 6.1 he does understand this is in prediabetic range. He is not interested in starting metformin at this time. He would like to work on lifestyle modifications to reduce his sugars (5) Dermatitis: Code(s): L30.9 - Dermatitis, unspecified Plan: Has a small rash over bilateral shins. Will supply patient with medicated topical creams. Orders: Orders Comprehensive [place]. Panel Fast 03/04/24 R73.09 - Other abnormal glucose Hemoglobin A1c 03/04/24 R73.09 - Other abnormal glucose Lipid Panel 03/04/24 E78.00 - Pure hypercholesterolemia, unspecified Medications: New clotrimazole-betamethasone 1-0.05 % 1 appl topical BID 30 days 45 grams 0RF L30.9 - Dermatitis, unspecified clotrimazole-betamethasone 1-0.05 % 1 appl topical BID 45 grams 0RF 30 days L30.9 - Dermatitis, unspecified Discontinued metformin ER Discontinued Reason: Doctor's Order 500 mg PO DAILY 30 days 30 tabs 3RF R73.09 - Other abnormal glucose finasteride (Proscar) Discontinued Reason: Doctor's Order 5 mg PO DAILY 90 days 90 tabs 3RF C61 - Malignant neoplasm of prostate tamsulosin Discontinued Reason: Doctor's Order 0.4 mg PO BEDTIME 90 caps 3RF Patient Instructions: Goals: Reduce his A1c and fasting blood sugar. Lose weight. goal A1c to be below 5.7, goal cholesterol to be below 200 Barriers: Difficulty with dietary modifications and being more physically active. Coding Level of Care Code Est Pt Level 4 (57577) Diagnoses Class 1 obesity due to excess calories without serious comorbidity with body mass index (BMI) of 33.0 to 33.9 in adult E66.09; Z68.33 Body mass index: BMI 33.0-33.9 Obesity classification: adult class 1 (BMI 30 - 34.9) Obesity type: due to excess calories Serious obesity comorbidity presence: without serious comorbidity Hypercholesteremia E78.00 Elevated PSA R97.20 Impaired glucose metabolism R73.09 Dermatitis L30.9
== END 2024-03-04 13:27 | disposition home or self-care (01) ==
PROVIDERS: PCP Physician Assistant; Visit Provider Physician Assistant
DX: E66.09 Other obesity due to excess calories (principal); Z68.33 Body mass index [BMI] 33.0-33.9, adult; E78.00 Pure hypercholesterolemia, unspecified; R97.20 Elevated prostate specific antigen [PSA]; R73.09 Other abnormal glucose; L30.9 Dermatitis, unspecified
CPT/HCPCS: 99214

== ENCOUNTER 2024-08-25 06:41 | Outpatient (REF) | payer BC, SELFPAY ==
[2024-08-25 08:00] LABS: Estimated Average Glucose 117 mg/dL; Hemoglobin A1C 143.2193 umol/L; Hemoglobin A1c % 5.7 % (<6.0); Total Hemoglobin (HGBA1C) 3678.3799 umol/L
[2024-08-25 08:31] LABS: Alanine Aminotransferase 41 U/L (0-40); Albumin Level 4.2 g/dL (3.5-5.0); Alkaline Phosphatase 57 U/L (39-117); Anion Gap 9 (12-20); Aspartate Amino Transferase 21 U/L (5-37); Bilirubin Total 0.8 mg/dL (0.0-1.0); Blood Urea Nitrogen 22 mg/dL (9-16); Calcium 9.6 mg/dL (8.4-10.2); Carbon Dioxide 27 mmol/L (22-29); Chloride 112 mmol/L (96-108); Cholesterol 268 mg/dL (<200); Estimated Glomerular Filt Rate > 60; Glucose Fasting 125 mg/dL (60-99); HDL Cholesterol 55 mg/dL (>40); LDL Cholesterol Calculated 182 mg/dL (<100); Potassium 4.4 mmol/L (3.3-5.1); Sodium 144 mmol/L (135-145); Total Protein 6.8 g/dL (6.5-8.0); Triglycerides 155 mg/dL (<150)
== END 2024-08-25 06:42 | disposition home or self-care (01) ==
LOC: HO.LAB 06:41
PROVIDERS: PCP Physician Assistant; Visit Provider Physician Assistant
DX: R73.09 Other abnormal glucose (principal); E78.00 Pure hypercholesterolemia, unspecified
CPT/HCPCS: 36415; 80053; 80061; 83036

== ENCOUNTER 2024-09-09 14:03 | Outpatient (AMB) | payer BC, SELFPAY ==
--- NOTE | 2024-09-09 14:10 | MHC.PC.OV ---
Intake Visit Reasons: PE Intake Note: Patient is here today for a physical. 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: No Accompanied by: Self / Same As Patient Allergies Penicillins Allergy (Mild, Verified 09/09/24 14:32) RASH Medication List - Last Reconciled 09/09/24 by Humberto Ayala PA-C clotrimazole-betamethasone 1-0.05 % 1 appl topical BID 30 days Tobacco use date assessed: 03/04/24 Fall risk assessment: No Falls in past year Last assessed Fall Risk: 09/09/24 Dental Screening Dental Screen Date: 09/09/24 Did you have a dental visit in the last 12 months?: Yes Did you have a dental problem in the last 6 months where you did not have access to dental care?: No Was dental information given to patient?: Patient has dentist HPI PE HPI Details Patient is a 69-year-old male here today for a routine annual physical .? Patient has a past medical history significant for IGM, hypercholesterolemia sleep disturbance, obesity, osteoarthritis of the knees. .. Hypercholesterolemia:? Most recent lipid panel?showing elevated total cholesterol and LDL. He admits to some dietary indiscretion.. He is again not interested in starting any medication will like to work on extensively on lifestyle and dietary modifications. He has lost a few lb since last office visit and has been watching his diet recently. .. ? Impaired glucose metabolism: Most recent fasting blood sugars slightly elevated fasting blood sugar though A1c is improved to 5.7.. He has lost weight since last office visit . . Elevated PSA :? Has seen Urology and underwent prostate biopsy all with benign findings. Continue to follow PSA on a yearly basis. Colon cancer screen: Colonoscopy done in 2021 -repeat 5 years .. Vaccine : Up-to-date with tetanus, up-to-date with COVID vaccine. UTD pneumonia and flu vaccine Laboratory Tests 02/07/24 08/25/24 06:45 06:53 Creatinine 0.89 Fasting Glucose 125 H Hemoglobin A1c % 6.1 H 5.7 Cholesterol 243 H 268 H LDL Cholesterol, C alc 171 H 182 H PFSH Medical History Sleep apnea with use of continuous positive airway pressure (CPAP) BPH (benign prostatic hyperplasia) Surgical History Hx of colonoscopy Cataract, left eye History of basal cell carcinoma excision S/P laparoscopic hernia repair Family History Father CAD (coronary artery disease) Mother Heart palpitations Social History (Updated 09/09/24 @ 14:36 by Humberto Ayala PA-C) Housing: House Alcohol intake: current Alcohol intake frequency: holidays/special occasions only Patient Tobacco Use Status: Former Tobacco user Tobacco use type: Cigarette e-Cigarette/Vaping Use: Never Used Second Hand Smoke Exposure: Yes service: No Current occupational status: employed Current occupation: [employer] Cognitive needs: No Hearing needs: No Vision needs: No Questionnaire PHQ-9 Over the last 2 weeks, how often have you been bothered by any of the following problems? 1. Little interest or pleasure in doing things: not at all 2. Feeling down, depressed, or hopeless: not at all 3. Trouble falling or staying asleep, or sleeping too much: not at all 4. Feeling tired or having little energy: not at all 5. Poor appetite or overeating: not at all 6. Feeling bad about yourself - or that you are a failure or have let yourself or your family down: not at all 7. Trouble concentrating on things, such as reading the newspaper or watching television: not at all 8. Moving or speaking so slowly that other people could have noticed. Or the opposite - being so fidgety or restless that you have been moving around a lot more than usual: not at all 9. Thoughts that you would be better off or of hurting yourself in some way: not at all Total score: 0 Depression Screening Interpretation: Negative Depression Screening Done: Yes 79292 - PHQ-9 Billing: Yes Source: Developed by Drs. Sd May, Evie Mccann, Reuben Haddad and colleagues, with an educational noé from [employer] Thrive Questionnaire Date Thrive assessed: 09/09/24 I am a: Patient What is your living situation today?: I have a steady place to live Within the past 12 months, did the food you bought not last and you didn't have the money to get more?: Never true Within the past 12 months, did you worry whether your food would run out before you got money to buy more?: Never true Do you have trouble paying for medicines?: No Do you have trouble getting transportation to medical appointments?: No Do you have trouble paying your heating and electricity bill?: No Do you have trouble taking care of your child, family member or friend?: No Do you have trouble with day-to-day activities such as bathing, preparing meals, shopping, managing finances, etc.?: No Are you currently unemployed and looking for a job?: No Are you interested in more education?: No Please select the resources that you would like help with: None Currently or been in a relationship where the following occur: No concerns reported THRIVE Score: 0 AUDIT C Alcohol Use Questionnaire (AUDIT-C) 1. How often do you have a drink containing alcohol?: Monthly or less 2. How many drinks containing alcohol do you have on a typical day when you are drinking?: 1 or 2 3. How often do you have six or more drinks on one occasion?: Never Total Score: 1 EBONIE-7 AMB Questionnaire EBONIE-7 Date EBONIE - 7 assessed: 09/09/24 Feeling nervous, anxious, or on edge: 0 = Not at all Not being able to stop or control worryin = Not at all Worrying too much about different things: 0 = Not at all Trouble relaxin = Not at all Being so restless that it is hard to sit still: 0 = Not at all Becoming easily annoyed or irritable: 0 = Not at all Feeling afraid as if something awful might happen: 0 = Not at all Total EBONIE-7 score (0-4 normal; 5-9 mild; 10-14 moderate; 15-21 severe): 0 Source: Developed by Drs. Sd May, Evie Mccann, Reuben Haddad and colleagues, with an educational noé from [employer] EBONIE-7 Assessment Billing EBONIE-7 Assessment Tool: EBONIE-7 Assessment 58078 Review of Systems Const Denies body aches, Denies chills, Denies excessive sweating, Denies fatigue, Denies fever(s) and Denies headache(s) Eyes Denies blurry vision ENT Denies dysphagia, Denies vertigo, Denies dizziness, Denies headache(s), Denies hearing loss and Denies tinnitus Card Denies chest pain, Denies chest pain with activity, Denies syncope, Denies irregular heart rhythm and Denies dyspnea Resp Denies chest congestion, Denies cough, Denies hemoptysis, Denies dyspnea and Denies wheezing GI Denies abdominal pain, Denies melena, Denies hematochezia, Denies coffee ground emesis, Denies dysphagia, Denies diarrhea, Denies nausea and Denies vomiting Denies difficulty urinating, Denies dysuria, Denies urinary frequency, Denies urinary hesitancy and Denies urinary urgency Musc Denies arthralgias, Denies limited range of motion, Denies muscle cramps and Denies muscle weakness Skin/Breast Denies rash and Denies skin ulcer Neuro Denies Abnormal speech present, Denies confusion, Denies vertigo, Denies dizziness, Denies syncope, Denies headache(s), Denies memory loss and Denies seizure-like activity Psych Denies anxiety, Denies confusion, Denies depression, Denies memory loss, Denies panic attacks and Denies paranoia Endo Denies excessive sweating, Denies fatigue, Denies flushing, Denies polydipsia and Denies polyuria Aller/Immun Denies wheezing Physical exam (Primary Care) Tobacco/Smoking Status: Tobacco use Status Tobacco use date assessed 03/04/24 09/09/24 14:11 Patient Tobacco Use Status Former Tobacco user 09/09/24 14:11 Tobacco use type Cigarette 09/09/24 14:11 e-Cigarette/Vaping Use Never Used 09/09/24 14:11 PHQ-9: PHQ-9 Score PHQ-9: Total score 0 09/09/24 14:11 Depression Screening Interpretation: Negative Thrive Assessment: Date of Thrive Assessment Date Thrive assessed 09/09/24 09/09/24 14:11 Currently or been in a relationship where the following occur: No concerns reported Const General: cooperative, comfortable, no acute distress, alert and awake; No confusion Orientation/consciousness: oriented to person, oriented to place, patient oriented x3 and No confusion HENMT Head: Yes normocephalic Ears: external ears normal and TM's normal bilaterally Face and sinus: No sinus tenderness Mouth: Normal oral and palatal mucosa present and tongue normal Teeth and gingiva: dentition normal and gingiva normal Throat: Yes posterior oropharynx normal, Yes tonsils normal and Yes uvula midline Eyes Conjunctivae: conjunctivae normal Sclerae: sclerae normal Pupils: Equal, round and reactive pupils present EOM: EOMs intact bilaterally Direct Ophthalmoscopy: No no photophobia Neck Neck: Yes no lymphadenopathy, No tender and Yes no JVD Thyroid: Thyroid normal Carotids: no bruits Chest Chest palpation & inspection: no tenderness Resp Effort & Inspection: normal respiratory effort, no audible wheezes, not labored and no stridor Auscultation: no crackles, no rales, no rhonchi and no wheezes Cardio Jugular venous distension: no JVD Rate: regular rate, not bradycardic and not tachycardic Rhythm: regular rhythm Bruits: no carotid bruits Peripheral pulses: Peripheral pulses 2+ throughout GI Inspection: Yes normal to inspection, No abdominal wall ecchymosis and No visible herniation Palpation (GI): Soft to palpation, nontender, no guarding, not rigid and No hepatosplenomegaly present Auscultation: normoactive bowel sounds General: Yes no CVA tenderness Back/Spine/Pelvis Back: no CVA tenderness and No back tenderness Cervical Spine: cervical ROM normal Thoracic/Lumbar Spine: thoracic and lumbar spine normal to inspection, straight leg raise negative bilaterally, No thoraco-lumbar ROM limited and No lumbar spinal tenderness Skin Lesions: no lesions Rashes: no rashes Wounds: no wounds Neuro General: oriented to person, oriented to place, patient oriented x3, CN's II-XI intact bilaterally and No confusion Cranial nerves: Yes Equal, round and reactive pupils present and Yes Normal accommodation reflex present Cognition (Neuro): normal cognition Speech: No Abnormal speech present Gait exam (Neuro): Normal gait present Motor exam (neuro): 5/5 motor strength present throughout Extrem Right upper extremity: full ROM; no cyanosis Left upper extremity: full ROM; no cyanosis Right lower extremity: no edema Left lower extremity: no edema Psych Appearance: grossly normal Mental Status: mental status grossly normal Affect: normal affect Attitude: cooperative Thought process: Normal thought process present Office Procedures Flu Questionnaire Does the patient have a severe egg allergy?: No Does the patient have severe life threatening allergies?: No Does the patient have a fever or illness today?: No Has the patient ever had Guillain-Clinton Syndrome?: No Has the patient ever had any past reaction to a flu shot?: No Immunizations Fluarix Triv [id number] (PF) 45 mcg (15 mcg x 3)/0.5 mL IM syringe Performing Provider: Humberto Ayala PA-C [facility] [place] [facility] Administered by: LORAINE Desai on 09/09/24 14:21 Dose Route Admin Location Dispensed Lot Number Expiration Date NDC [employer] 0.5 mL IM Left Deltoid 0.5 mL [id number] 05/18/25 [id number] Invested[employer] VIS Given Date VIS Provided VIS Publication Date 09/09/24 Single Vaccine 21 Eligibility Eligibility Date Funding Source Not [facility] Eligible 09/09/24 Private Coding Level of Care Code Est Pt Prev Care >65y(60958) Diagnoses Annual physical exam Z00.00 Impaired glucose metabolism R73.09 Hypercholesteremia E78.00 Elevated PSA R97.20 Additional Codes EBONIE-7 Assessment Billing - EBONIE-7 Assessment Tool: EBONIE-7 Assessment 46955 ([id number]) Assessment & Plan Assessment & Plan (1) Annual physical exam: Code(s): Z00.00 - Encounter for general adult medical examination without abnormal findings Category: Medical Plan: As per HPI (2) Impaired glucose metabolism: Code(s): R73.09 - Other abnormal glucose Category: Medical Plan: Most recent fasting blood sugar and A1c have improved. He will continue working on lifestyle dietary modifications to reduce his sugars. (3) Hypercholesteremia: Code(s): E78.00 - Pure hypercholesterolemia, unspecified Category: Medical Plan: Most recent fasting lipid panel showing elevated total cholesterol and LDL. He is not interested in starting cholesterol medication at this point. Goal total cholesterol to be below 230 and LDL to be below 160 (4) Elevated PSA: Code(s): R97.20 - Elevated prostate specific antigen [PSA] Category: Medical Plan: Patient has a history of elevated PSA, was evaluated by Urology in gotten biopsies though were benign findings. Will continue to follow PSA. He otherwise denies any urination symptoms. Orders: Orders Prostate Specific Antigen Scr Today R97.20 - Elevated prostate specific antigen [PSA], Z12.5 - Encounter for screening for malignant neoplasm of prostate Comprehensive [place]. Panel Fast Today E78.00 - Pure hypercholesterolemia, unspecified Complete Blood Count no Diff Today E78.00 - Pure hypercholesterolemia, unspecified Lipid Panel Today E78.00 - Pure hypercholesterolemia, unspecified Influenza [id number] Immunization Today Z23 - Encounter for immunization Hemoglobin A1c Today R73.09 - Other abnormal glucose Patient Instructions: Goal: Total cholesterol to be 230 Barriers: Adherence to physical activity and healthy eating habits
== END 2024-09-09 14:56 | disposition home or self-care (01) ==
PROVIDERS: PCP Physician Assistant; Visit Provider Physician Assistant
DX: Z00.00 Encounter for general adult medical examination without abnormal findings (principal); R73.09 Other abnormal glucose; E78.00 Pure hypercholesterolemia, unspecified; R97.20 Elevated prostate specific antigen [PSA]; Z23 Encounter for immunization

== ENCOUNTER → 2024-09-09 14:03 | Outpatient (BNVA) | payer BC, SELFPAY | PROVIDERS: PCP Physician Assistant; Visit Provider Physician Assistant | DX: Z00.00 Encounter for general adult medical examination without abnormal findings (principal); R73.09 Other abnormal glucose; E78.00 Pure hypercholesterolemia, unspecified; R97.20 Elevated prostate specific antigen [PSA]; Z23 Encounter for immunization | CPT/HCPCS: 90471; 90656; 96127 ==

== ENCOUNTER 2024-10-08 06:28 | Outpatient (REF) | payer BC, SELFPAY ==
[2024-10-08 08:11] LABS: Prostate Specific Antigen 4.64 ng/mL (<0.05-4.0)
== END 2024-10-08 06:29 | disposition home or self-care (01) ==
LOC: HO.LAB 06:28
PROVIDERS: PCP Physician Assistant; Visit Provider Urology
DX: Z12.5 Encounter for screening for malignant neoplasm of prostate (principal)
CPT/HCPCS: 36415; 84153

== ENCOUNTER 2024-10-10 11:22 | Outpatient (AMB) | payer BC, SELFPAY ==
--- NOTE | 2024-10-10 02:42 | A.OFFVIS_ITS ---
Intake Visit Reasons: 1y follow up/PSA? Intake Note: NEW Patient presents today for 1y F/U PSA Meds-NONE Allergies to Antibiotic- Penicillins Blood Thinner- None Head Butler Required: No Accompanied by: Self / Same As Patient Allergies Penicillins Allergy (Mild, Verified 10/10/24 11:27) RASH Medication List - Last Reconciled 10/10/24 by Rosemarie Pandya MD clotrimazole-betamethasone 1-0.05 % 1 appl topical BID 30 days finasteride (Proscar) 5 mg PO DAILY 90 days HPI Comments Details: 10/10/24-- Fco is a 69-year-old male who presents today for a one year FU for elevated PSA and BPH. He denies irritative voiding symptoms. He states he is voiding without difficulty. Continue tamsulosin and ordered Proscar 5 mg daily Follow-up in one year PSA prior. Review of charts: 10/10/2023--Fco is a 68-year-old male who presents today for a follow-up. He is followed today for biopsy results. PSA results from 08/18/2023 revealed 5.29. He is a status post prostate biopsy for elevated PSA which was done on 09/28/2023. Biopsy results were benign. I have reviewed the US results from 09/28/2023 showed the estimated measurement of the prostate was 75 mL. 05/28/23-- The patient complains having urinary symptoms of urgency and weak stream. Denies dysuria, or gross hematuria PSA results reviewed--05/04/23-- 5.38; PSA---08/01/23-- 4.98. AUA symptom score: 13. Prostate exam: moderately enlarged and a nodular area noted at the right apex. [facility] Medical History Sleep apnea with use of continuous positive airway pressure (CPAP) BPH (benign prostatic hyperplasia) Surgical History Hx of colonoscopy Cataract, left eye History of basal cell carcinoma excision S/P laparoscopic hernia repair Family History Father CAD (coronary artery disease) Mother Heart palpitations Social History (Updated 09/09/24 @ 14:36 by Humberto Ayala PA-C) Housing: House Alcohol intake: current Alcohol intake frequency: holidays/special occasions only Patient Tobacco Use Status: Former Tobacco user Tobacco use type: Cigarette e-Cigarette/Vaping Use: Never Used Second Hand Smoke Exposure: Yes service: No Current occupational status: employed Current occupation: [employer] Cognitive needs: No Hearing needs: No Vision needs: No Review of Systems Const All systems reviewed & are unremarkable except as noted in HPI and below Reports no additional complaints Eyes Reports no additional complaints ENT Reports no additional complaints Card Reports no additional complaints Resp Reports no additional complaints GI Reports no additional complaints Reports as per HPI Musc Reports no additional complaints Skin/Breast Reports system reviewed and no additional complaints, except as documented Neuro Reports no additional complaints Psych Reports no additional complaints Endo Reports no additional complaints Poncho/Lymph Reports no additional complaints Aller/Immun Reports no additional complaints Results AMB Urinalysis, Automated UA Leukoctes Aleisha/uL Last Edit by LORAINE Carney on 10/10/24 11:32 UA Nitrite Negative Last Edit by LORAINE Carney on 10/10/24 11:32 UA Urobilinogen 0.2 mg/dL Last Edit by LORAINE Carney on 10/10/24 11:3 2 UA Protein 0 mg/dL Last Edit by LORAINE Carney on 10/10/24 11:32 UA pH 6.0 Last Edit by LORAINE Carney on 10/10/24 11:32 UA Blood 0 Elmer/uL Last Edit by LORAINE Carney on 10/10/24 11:32 UA Specific [place] 1.020 Last Edit by LORAINE Carney on 10/10/24 11: 32 UA Ketone Negative Last Edit by LORAINE Carney on 10/10/24 11:32 UA Bilirubin 0 mg/dL Last Edit by LORAINE Carney on 10/10/24 11:32 UA Glucose 0 mg/dL Last Edit by LORAINE Carney on 10/10/24 11:32 Results Reviewed Results Reviewed: Laboratory Last Values Urine pH (Auto) 6.0 10/10/24 11:31 Specific [place] (Auto) 1.020 10/10/24 11:31 Urine Protein (Auto) 0 mg/dL 10/10/24 11:31 Glucose (UA)(Auto) 0 mg/dL 10/10/24 11:31 Urine Ketones (Auto) Negative 10/10/24 11:31 Urine Blood (Auto) 0 Elmer/uL 10/10/24 11:31 Urine Nitrite (Auto) Negative 10/10/24 11:31 Urine Bilirubin (Auto) 0 mg/dL 10/10/24 11:31 Urine Urobilinogen (Auto) 0.2 mg/dL 10/10/24 11:31 Prostate biopsy 09/28/2023-- Diagnosis Prostate, needle core biopsies: A. Left base lateral: Benign prostatic tissue. B. Left base medial: Benign prostatic tissue. C. Left mid lateral: Benign prostatic tissue. D. Left mid medial: Benign prostatic tissue. E. Left apex lateral: Benign prostatic tissue. F. Left apex medial: Benign prostatic tissue. G. Right base lateral: Benign prostatic tissue. H. Right base medial: Benign prostatic tissue. I. Right mid lateral: Benign prostatic tissue. J. Right mid medial: Benign prostatic tissue. K. Right apex lateral: Benign prostatic tissue. L. Right apex medial: Benign prostatic tissue. Clinical History Elevated PSA Microscopic Description Microscopic sections show multiple needle cores of benign prostatic parenchyma with scattered foci of chronic inflammation throughout. Material Received A: Left base lateral B: Left base medial C: Left mid lateral D: Left mid medial E: Left apex lateral F: Left apex medial G: Right base lateral H: Right base medial I: Right mid lateral J: Right mid medial K: Right apex lateral L: Right apex medial Gross Description A. Received in formalin labeled ?left base lateral? is a glistening fragment of white soft tissue measuring 0.7 cm in length with a diameter of 0.1 cm which is wrapped in lens paper and entirely submitted for microscopic examination, 1 piece in cassette labeled A B. Received in formalin labeled ?left base medial? is a fragment of glistening, translucent white soft tissue measuring 1.0 cm in length with a diameter of 0.1 cm which is wrapped in lens paper and entirely submitted for microscopic examination, 1 piece in cassette labeled B. C. Received in formalin labeled ?left mid lateral? is a fragment of glistening, translucent white soft tissue measuring 1.0 cm in length with a diameter of 0.1 cm which is wrapped in paper and entirely submitted for microscopic examination, 1 piece in cassette labeled C. D. Received in formalin labeled ?left mid medial? is a fragment of glistening, translucent white soft tissue measuring 1.3 cm in length with a diameter of 0.1 cm which is wrapped in lens paper and entirely submitted for microscopic examination, 1 piece in cassette labeled D. E. Received in formalin labeled ?left apex lateral? is a fragment of glistening, translucent leiva white soft tissue measuring 0.9 cm in length with a diameter of 0.1 cm which is wrapped in lens paper and entirely submitted for microscopic examination, 1 piece in cassette labeled E. F. Received in formalin labeled left apex medial? is a fragment of glistening translucent leiva white soft tissue measuring 1.0 cm in length with a diameter of 0.1 cm which is wrapped in lens paper and entirely submitted for microscopic examination, 1 piece in cassette labeled F. G. Received in formalin labeled ?right base lateral? is a fragment of glistening, translucent white soft tissue measuring 1.0 cm in length with a diameter of 0.1 cm which is wrapped in lens paper and entirely submitted for microscopic examination, 1 piece in cassette labeled G. H. Received in formalin labeled ?right base medial? is a fragment of translucent soft white tissue measuring 1.3 cm in length with a diameter of 0.1 cm which is wrapped in lens paper and entirely submitted for microscopic examination, 1 piece in cassette labeled H. I. Received in formalin labeled ?right mid lateral? is a fragment of glistening, translucent white soft tissue measuring 1.5 cm in length with a diameter of 0.1 cm which is wrapped in lens paper and entirely submitted for microscopic examination, 1 piece in cassette labeled I. J. Received in formalin labeled ?right mid medial is a fragment of glistening, translucent white soft tissue measuring 1.6 cm in length with a diameter of 0.1 cm which is wrapped in lens paper and entirely submitted for microscopic examination, 1 piece in cassette labeled J. K. Received in formalin labeled ?right apex lateral? is a fragment of a glistening, translucent white soft tissue measuring 0.8 cm in length with a diameter of 0.1 cm which is wrapped in lens paper and entirely submitted for microscopic examination, 1 piece in cassette labeled K. L. Received in formalin labeled ?right apex medial? are 2 fragments of translucent white soft tissue measuring 0.6 and 1.4 cm in length. Both have a diameter of 0.1 cm. The specimen is wrapped in lens paper and entirely submitted for microscopic examination, 2 pieces in cassette labeled L Assessment & Plan Assessment & Plan (1) Elevated PSA: Code(s): R97.20 - Elevated prostate specific antigen [PSA] Category: Medical (2) BPH loc w urin obs/LUTS: Code(s): N40.1 - Benign prostatic hyperplasia with lower urinary tract symptoms Category: Medical Plan Continue tamsulosin and ordered Proscar 5 mg daily Follow-up in oney year PSA prior. Orders: Orders AMB Urinalysis Automated 10/10/24 Z13.9 - Encounter for screening, unspecified Prostate Specific Antigen 10/08/24 Z12.5 - Encounter for screening for malignant neoplasm of prostate Medications: New finasteride (Proscar) 5 mg PO DAILY 90 tabs 3RF 90 days Coding Level of Care Code Est Pt Level 3 (86012) Diagnoses Elevated PSA R97.20 BPH loc w urin obs/LUTS N40.1
== END 2024-10-10 11:50 | disposition home or self-care (01) ==
PROVIDERS: PCP Physician Assistant; Visit Provider Urology
DX: Z13.9 Encounter for screening, unspecified (principal)
CPT/HCPCS: 99213

== ENCOUNTER → 2024-10-10 11:22 | Outpatient (BNVA) | payer BC, SELFPAY | PROVIDERS: PCP Physician Assistant; Visit Provider Urology | DX: R97.20 Elevated prostate specific antigen [PSA] (principal); N40.1 Benign prostatic hyperplasia with lower urinary tract symptoms; N13.8 Other obstructive and reflux uropathy; Z79.899 Other long term (current) drug therapy | CPT/HCPCS: 81003 ==

== ENCOUNTER 2025-03-04 06:31 | Outpatient (REF) | payer BC, SELFPAY ==
[2025-03-04 07:25] LABS: Estimated Average Glucose 137 mg/dL; Hemoglobin A1c % 6.4 % (<6.0); Total Hemoglobin (HGBA1C) 3951.4946 umol/L
[2025-03-04 07:54] LABS: Hematocrit 43.3 % (42.0-52.0); Hemoglobin 15.1 g/dl (14.0-18.0); Mean Corpuscular HGB Conc 34.9 g/dl (31.0-36.0); Mean Corpuscular Hemoglobin 31.8 pg (27.0-33.0); Mean Corpuscular Volume 91.2 fL (80.0-98.0); Mean Platelet Volume 9.8 fL (9.4-12.4); Platelet Count 238 X10*3/uL (160-400); Red Blood Count 4.75 X10*6/uL (4.60-5.80); Red Cell Distribution Width 12.3 % (11.0-16.0); White Blood Count 5.7 X10*3/uL (4.8-10.8)
[2025-03-04 08:02] LABS: Alanine Aminotransferase 57 U/L (0-40); Albumin Level 4.1 g/dL (3.5-5.0); Alkaline Phosphatase 56 U/L (39-117); Anion Gap 10 (12-20); Aspartate Amino Transferase 33 U/L (5-37); Bilirubin Total 0.6 mg/dL (0.0-1.0); Blood Urea Nitrogen 19 mg/dL (9-16); Calcium 9.3 mg/dL (8.4-10.2); Carbon Dioxide 26 mmol/L (22-29); Chloride 108 mmol/L (96-108); Cholesterol 258 mg/dL (<200); Estimated Glomerular Filt Rate > 60; Glucose Fasting 131 mg/dL (60-99); HDL Cholesterol 48 mg/dL (>40); LDL Cholesterol Calculated 166 mg/dL (<100); Potassium 4.2 mmol/L (3.3-5.1); Sodium 140 mmol/L (135-145); Total Protein 6.6 g/dL (6.5-8.0); Triglycerides 223 mg/dL (<150)
[2025-03-04 08:15] LABS: Prostate Specific Antigen Scr 4.81 ng/mL (<0.05-4.0)
== END 2025-03-04 06:32 | disposition home or self-care (01) ==
LOC: HO.LAB 06:31
PROVIDERS: PCP Physician Assistant; Visit Provider Physician Assistant
DX: E78.00 Pure hypercholesterolemia, unspecified (principal); Z12.5 Encounter for screening for malignant neoplasm of prostate; R97.20 Elevated prostate specific antigen [PSA]; R73.09 Other abnormal glucose
CPT/HCPCS: 36415; 80053; 80061; 83036; 84153; 85027

== ENCOUNTER 2025-03-10 13:56 | Outpatient (AMB) | payer BC, SELFPAY ==
--- NOTE | 2025-03-10 14:01 | A.OFFPC_ITS ---
Vital Signs 03/10/25 14:02 Height 5 ft 10 in Weight 218 lb 2 oz BMI 31.3 BP 144/72 H Blood Pressure Location Lt brachial Position Sitting Pulse 63 Pulse Source Pulse Oximeter Temp 97.3 F Temp Source Temporal Artery Scan Pulse Oximetry (%) 96 Oxygen Delivery Method Room Air Intake Visit Reasons: 6mth f/u Chief Of Staff Doctor Required: No Accompanied by: Self / Same As Patient Allergies Penicillins Allergy (Mild, Verified 03/10/25 14:09) RASH finasteride Adverse Reaction (Intermediate, Verified 03/10/25 14:19) Dizziness Medication List - Last Reconciled 03/10/25 by Humberto Ayala PA-C clotrimazole-betamethasone 1-0.05 % 1 appl topical BID 30 days finasteride (Proscar) 5 mg PO DAILY 90 days Tobacco use date assessed: 03/10/25 Fall risk assessment: No Falls in past year Last assessed Fall Risk: 03/10/25 Dental Screening Dental Screen Date: 03/10/25 Did you have a dental visit in the last 12 months?: Yes Did you have a dental problem in the last 6 months where you did not have access to dental care?: No Was dental information given to patient?: Patient has dentist HPI 6mth f/u HPI Details Patient is a 69-year-old male here today for a follow-up visit .? Patient has a past medical history si gnificant for IGM, hypercholesterolemia sleep disturbance, obesity, osteoarthritis of the knees. .. Hypercholesterolemia:? Most recent lipid panel?showing elevated total cholesterol and LDL. He admits to some dietary indiscretion.. He is again not interested in starting any medication will like to work on extensively on lifestyle and dietary modifications. .. ? Impaired glucose metabolism: Most recent fasting blood sugars slightly elevated fasting blood sugar and A1c in prediabetic range at 6.4. He has unfortunately gained weight .. Class 1 obesity: Patient does understand his BMI is over 30 will work on being more physically active and adapting to better eating habits to reduce his weight . . Elevated PSA :? Has seen Urology and underwent prostate biopsy all with benign findings. He was given finasteride 5 mg though felt side effects to this medication.. Continue to follow PSA on a yearly basis. Laboratory Tests 08/25/24 03/04/25 06:53 06:45 Fasting Glucose 125 H 131 H Hemoglobin A1c % 5.7 6.4 H Cholesterol 268 H 258 H LDL Cholesterol, C alc 182 H 166 H PSA Screen 4.81 H PFSH Medical History Sleep apnea with use of continuous positive airway pressure (CPAP) BPH (benign prostatic hyperplasia) Surgical History Hx of colonoscopy Cataract, left eye History of basal cell carcinoma excision S/P laparoscopic hernia repair Family History Father CAD (coronary artery disease) Mother Heart palpitations Social History Housing: House Alcohol intake: current Alcohol intake frequency: holidays/special occasions only Patient Tobacco Use Status: Former Tobacco user Tobacco use type: Cigarette e-Cigarette/Vaping Use: Never Used Second Hand Smoke Exposure: Yes service: No Current occupational status: employed Current occupation: [employer] Cognitive needs: No Hearing needs: No Vision needs: No Questionnaire PHQ-9 Over the last 2 weeks, how often have you been bothered by any of the following problems? 1. Little interest or pleasure in doing things: not at all 2. Feeling down, depressed, or hopeless: not at all 3. Trouble falling or staying asleep, or sleeping too much: not at all 4. Feeling tired or having little energy: not at all 5. Poor appetite or overeating: not at all 6. Feeling bad about yourself - or that you are a failure or have let yourself or your family down: not at all 7. Trouble concentrating on things, such as reading the newspaper or watching television: not at all 8. Moving or speaking so slowly that other people could have noticed. Or the opposite - being so fidgety or restless that you have been moving around a lot more than usual: not at all 9. Thoughts that you would be better off or of hurting yourself in some way: not at all Total score: 0 Depression Screening Interpretation: Negative Depression Screening Done: Yes 68060 - PHQ-9 Billing: Yes Source: Developed by Drs. Sd May, Reuben Evans and colleagues, with an educational noé from [employer]. Thrive Questionnaire Date Thrive assessed: 03/10/25 I am a: Patient What is your living situation today?: I have a steady place to live Within the past 12 months, did the food you bought not last and you didn't have the money to get more?: Never true Within the past 12 months, did you worry whether your food would run out before you got money to buy more?: Never true Do you have trouble paying for medicines?: No Do you have trouble getting transportation to medical appointments?: No Do you have trouble paying your heating and electricity bill?: No Do you have trouble taking care of your child, family member or friend?: No Do you have trouble with day-to-day activities such as bathing, preparing meals, shopping, managing finances, etc.?: No Are you currently unemployed and looking for a job?: No Are you interested in more education?: No Please select the resources that you would like help with: None Currently or been in a relationship where the following occur: No concerns reported THRIVE Score: 0 AUDIT C Alcohol Use Questionnaire (AUDIT-C) 1. How often do you have a drink containing alcohol?: Monthly or less 2. How many drinks containing alcohol do you have on a typical day when you are drinking?: 1 or 2 3. How often do you have six or more drinks on one occasion?: Never Total Score: 1 EBONIE-7 AMB Questionnaire EBONIE-7 Date EBONIE - 7 assessed: 03/10/25 Feeling nervous, anxious, or on edge: 0 = Not at all Not being able to stop or control worryin = Not at all Worrying too much about different things: 0 = Not at all Trouble relaxin = Not at all Being so restless that it is hard to sit still: 0 = Not at all Becoming easily annoyed or irritable: 0 = Not at all Feeling afraid as if something awful might happen: 0 = Not at all Total EBONIE-7 score (0-4 normal; 5-9 mild; 10-14 moderate; 15-21 severe): 0 Source: Developed by Drs. Sd May, Reuben Evans and colleagues, with an educational noé from [employer]. EBONIE-7 Assessment Billing EBONIE-7 Assessment Tool: EBONIE-7 Assessment 53673 Review of Systems Const Denies headache(s) Eyes Denies loss of vision ENT Denies vertigo, Denies dizziness, Denies headache(s) and Denies sore throat Card Denies chest pain, Denies leg edema and Denies lightheadedness Resp Denies cough, Denies hemoptysis and Denies wheezing GI Denies abdominal pain, Denies melena, Denies constipation, Denies diarrhea and Denies vomiting Denies dysuria, Denies urinary frequency and Denies urinary urgency Musc Denies arthralgias, Denies joint swelling, Denies numbness and Denies tingling Neuro Denies Abnormal speech present, Denies behavioral changes, Denies vertigo, Denies dizziness, Denies headache(s), Denies loss of vision, Denies memory loss, Denies numbness and Denies tingling Psych Denies anxiety, Denies behavioral changes, Denies depression, Denies memory loss and Denies panic attacks Poncho/Lymph Denies easy bleeding and Denies easy bruising Aller/Immun Denies wheezing Physical exam (Primary Care) Vital Signs: Last Vital Signs Temp 97.3 F 03/10/25 14:02 Pulse 63 03/10/25 14:02 BP 144/72 H 03/10/25 14:02 Pulse Ox 96 03/10/25 14:02 Oxygen Delivery Method Room Air 03/10/25 14:02 Care Plan Goal for BP management: Patient's blood pressure elevated today, not interested in starting medication Next steps: Patient will work on lifestyle and dietary modifications to reduce his weight and his blood pressure BMI result Body Mass Index 31.3 BMI Assessment/Plan discussion: High BMI High, discussed plan: lifestyle, weight reduction, dietary and physical activity Tobacco/Smoking Status: Tobacco use Status Tobacco use date assessed 03/10/25 03/10/25 14:09 Patient Tobacco Use Status Former Tobacco user 03/10/25 14:03 Tobacco use type Cigarette 03/10/25 14:03 e-Cigarette/Vaping Use Never Used 03/10/25 14:03 PHQ-9: PHQ-9 Score PHQ-9: Total score 0 03/10/25 14:11 Depression Screening Interpretation: Negative Thrive Assessment: Date of Thrive Assessment Date Thrive assessed 03/10/25 03/10/25 14:03 Currently or been in a relationship where the following occur: No concerns reported Const General: healthy appearing, no acute distress, alert and awake Nutritional Appearance: well nourished Orientation/consciousness: oriented to person, oriented to place and oriented to time HENMT Ears: TM's normal bilaterally General nose exam: Normal nasal mucous membranes and turbinates present Eyes Conjunctivae: conjunctivae normal Sclerae: sclerae normal Pupils: Equal, round and reactive pupils present Neck Neck: Yes no lymphadenopathy and Yes no JVD Thyroid: Thyroid normal Carotids: no bruits Resp Effort & Inspection: normal respiratory effort and not tachypneic Auscultation: no crackles, no rales, no rhonchi and no wheezes Cardio Rate: regular rate Rhythm: regular rhythm Heart sounds: no murmurs and normal S1 and S2 GI Palpation (GI): Soft to palpation, nontender, no hepatomegaly and no splenomegaly Auscultation: normal bowel sounds Skin General skin exam: no rashes or lesions noted and dry skin Neuro General: oriented to person, oriented to place and oriented to time Cranial nerves: Yes Equal, round and reactive pupils present Speech: No Abnormal speech present Gait exam (Neuro): Normal gait present Motor exam (neuro): no tremor noted Extrem Right upper extremity: full ROM Left upper extremity: full ROM Right lower extremity: full ROM; no edema Left lower extremity: full ROM; no edema Psych Mental Status: mental status grossly normal Speech and movement: Normal speech and movement present Affect: normal affect Attitude: cooperative Thought process: Normal thought process present Coding Level of Care Code Est Pt Level 4 (27880) Diagnoses Hypercholesteremia E78.00 Elevated blood pressure reading R03.0 Impaired glucose metabolism R73.09 Primary osteoarthritis of both knees M17.0 Osteoarthritis type: primary Class 1 obesity E66.811 Additional Codes EBONIE-7 Assessment Billing - EBONIE-7 Assessment Tool: EBONIE-7 Assessment 93542 ([id number]) PHQ-9 - 26516 - PHQ-9 Billing: Yes ([id number]) Assessment & Plan Assessment & Plan (1) Hypercholesteremia: Code(s): E78.00 - Pure hypercholesterolemia, unspecified Category: Medical Plan: Recommend dietary adjustments and regular monitoring to manage cholesterol levels. (2) Elevated blood pressure reading: Code(s): R03.0 - Elevated blood-pressure reading, without diagnosis of hypertension Category: Medical Plan: Patient continues to decline offers to start antihypertensive medication. Monitor blood pressure at home and promote lifestyle changes. Avoided medication due to borderline levels. (3) Impaired glucose metabolism: Code(s): R73.09 - Other abnormal glucose Category: Medical Plan: Patient's most recent A1c elevated at 6.4 from 5.7. He does understand he is in a prediabetic range. Advise weight loss, diet, and exercise to prevent diabetes progression. (4) Degenerative arthritis of knee, bilateral: Code(s): M17.0 - Bilateral primary osteoarthritis of knee Category: Medical Qualifiers: Osteoarthritis type: primary Qualified Code(s): M17.0 - Bilateral primary osteoarthritis of knee Plan: Encourage continued physiotherapy and weight management, consider imaging if pain persists and limits function. (5) Class 1 obesity: Code(s): E66.811 - Obesity, class 1 Category: Medical Plan: Patient does understand his BMI is over 30 will work on being more physically active and adapting to better eating habits to reduce his weight Orders: Orders Lipid Panel 03/10/25 E78.00 - Pure hypercholesterolemia, unspecified Complete Blood Count no Diff 03/10/25 R73.09 - Other abnormal glucose Hemoglobin A1c 03/10/25 R73.09 - Other abnormal glucose Comprehensive [place]. Panel Fast 03/10/25 R73.09 - Other abnormal glucose
[2025-03-10 14:02] VITALS: BP 144/72; PULSE 63; TEMP 36.3; O2SAT 96; BMI 31.3
--- OUTSIDE RECORDS SUMMARY | 2025-03-10 16:43 | XMS_ITS | Patient Health Record ---
Author Organization [facility] Address [address] [place] [id number] Care Team Providers Care Lumber Sticker Name Role Phone Humberto Ayala Primary Care Provider Sd Hood Unavailable [phone] Allergies Allergen (clinical drug ingredient) Drug/Non Drug Allergy documented on EMR Reaction Allergy Type Onset Date Status Penicillin Unknown Drug Allergy Active Reason For Referral No Information Medications Medication SIG (Take, Route, Frequency, Duration) Notes Start Date End Date Status Flomax 0.4 MG 1 capsule Orally Onc e a day for 30 day(s) Active Immunizations Vaccine Route Administration Date Status Comme nts Influenza Unknown 07/20/2021 Administered Problems Problem Type SNOMED Code ICD Code Onset Dates Problem Status W/U Status Risk Notes Problem 144864036 Encounter for screening for malignant neoplasm of colon (Z12.11) Active confirmed Problem 176842646 History of adenomatous polyp of colon (Z86.010) Active confirmed Problem [id number] Preprocedural examination (Z01.818) Active confirmed Problem History of polyp of colon (situation) (226583007) History of colon polyps (Z86.010) Active confirmed Problem Diverticulosis of colon (953920856) Diverticulosis of colon (K57.30) Active confirmed Plan Of Treatment Future Test Test Name Order Date COLONOSCOPY 05/05/2015 COLONOSCOPY 01/03/2022 Insurance Providers Payer Name Payer Address Payer Phone Subscriber Number Group Number Insured Name Patient Relationship to Insured Coverage Start Date Coverage End Date [facility] [employer] [address] [place] [address] [id number] [id number] [id number] Self - patient is the insured Medical (General) History Medical History History ICD Code Denies MT,DM,CVA,Lung disease,renal dise ase In 2007 he underwent a scree see colonoscopy with removal of a flat tubular adenoma from the ascending colon--he had a negative followup colonoscopy in June of 2010. He was found to have some diverticulosis and internal hemorrhoids. Colonoscopy 01/2016 with small tubular ad enomas removed BPH Surgical History Surgery Date(Month/Year) Melanoma removed from his back Inguinal hernias
== END 2025-03-10 14:31 | disposition home or self-care (01) ==
LOC: HO.HMCH 13:57
PROVIDERS: PCP Physician Assistant; Visit Provider Physician Assistant
DX: E78.00 Pure hypercholesterolemia, unspecified (principal); R03.0 Elevated blood-pressure reading, without diagnosis of hypertension; Z68.31 Body mass index [BMI] 31.0-31.9, adult; E66.811 Obesity, class 1; R73.09 Other abnormal glucose; M17.0 Bilateral primary osteoarthritis of knee

== ENCOUNTER → 2025-03-10 13:56 | Outpatient (BNVA) | payer BC, SELFPAY | PROVIDERS: PCP Physician Assistant; Visit Provider Physician Assistant | DX: E78.00 Pure hypercholesterolemia, unspecified (principal); R03.0 Elevated blood-pressure reading, without diagnosis of hypertension; R73.09 Other abnormal glucose; M17.0 Bilateral primary osteoarthritis of knee; E66.811 Obesity, class 1; Z68.31 Body mass index [BMI] 31.0-31.9, adult; R97.20 Elevated prostate specific antigen [PSA] | CPT/HCPCS: 96127 ==

== ENCOUNTER 2025-03-31 06:38 | Outpatient (REF) | payer BC, SELFPAY ==
--- OUTSIDE RECORDS SUMMARY | 2025-03-31 06:41 | XMS_ITS | Patient Health Record ---
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 Name Role Phone Humberto Ayala Primary Care Provider Sd Hood Unavailable [phone] Allergies Allergen (clinical drug ingredient) Drug/Non Drug [...] Problem Status W/U Status Risk Notes Problem 802136006 Encounter for screening for malignant neoplasm of colon (Z12.11) Active confirmed Problem 343718893 History of adenomatous polyp of colon (Z86.010) Active confirmed Problem 973647188423640 Preprocedural examination (Z01.818) Active confirmed Problem History of colon polyps (Z86.010) Active confirmed Problem Diverticulosis of colon (292899992) Diverticulosis of colon (K57.30) Active confirmed Plan Of Treatment Future Test Test Name Order Date COLONOSCOPY 05/05/2015 COLONOSCOPY 01/03/2022 Insurance Providers Payer Name Payer Address Payer Phone Subscriber Number Group Number Insured Name Patient Relationship to Insured Coverage Start Date Coverage End Date [facility] [address] [place] [address] [id number] FABI HAYNES Self - patient is the insured Medical (General) History Medical History History ICD Code Denies [place],DM,CVA,Lung disease,renal dise ase In 2007 he underwent [...]
[2025-03-31 07:07] LABS: Hematocrit 43.4 % (42.0-52.0); Hemoglobin 14.8 g/dl (14.0-18.0); Mean Corpuscular HGB Conc 34.1 g/dl (31.0-36.0); Mean Corpuscular Hemoglobin 31.3 pg (27.0-33.0); Mean Corpuscular Volume 91.8 fL (80.0-98.0); Mean Platelet Volume 9.6 fL (9.4-12.4); Platelet Count 245 X10*3/uL (160-400); Red Blood Count 4.73 X10*6/uL (4.60-5.80); Red Cell Distribution Width 12.6 % (11.0-16.0); White Blood Count 5.7 X10*3/uL (4.8-10.8)
[2025-03-31 07:16] LABS: Estimated Average Glucose 137 mg/dL; Hemoglobin A1C 180.8077 umol/L; Hemoglobin A1c % 6.4 % (<6.0); Total Hemoglobin (HGBA1C) 3907.0233 umol/L
[2025-03-31 07:34] LABS: Alanine Aminotransferase 81 U/L (0-40); Albumin Level 4.1 g/dL (3.5-5.0); Alkaline Phosphatase 67 U/L (39-117); Anion Gap 14 (12-20); Aspartate Amino Transferase 34 U/L (5-37); Bilirubin Total 0.3 mg/dL (0.0-1.0); Blood Urea Nitrogen 16 mg/dL (9-16); Carbon Dioxide 22 mmol/L (22-29); Chloride 108 mmol/L (96-108); Cholesterol 263 mg/dL (<200); Estimated Glomerular Filt Rate > 60; Glucose Fasting 148 mg/dL (60-99); HDL Cholesterol 47 mg/dL (>40); LDL Cholesterol Calculated 174 mg/dL (<100); Potassium 4.1 mmol/L (3.3-5.1); Sodium 140 mmol/L (135-145); Total Protein 6.8 g/dL (6.5-8.0); Triglycerides 212 mg/dL (<150)
== END 2025-03-31 06:39 | disposition home or self-care (01) ==
LOC: HO.LAB 06:38
PROVIDERS: PCP Physician Assistant; Visit Provider Urology
DX: R73.09 Other abnormal glucose (principal); E78.00 Pure hypercholesterolemia, unspecified
CPT/HCPCS: 36415; 80053; 80061; 83036; 85027

== ENCOUNTER 2025-04-09 08:25 | Outpatient (AMB) | payer BC, SELFPAY ==
--- NOTE | 2025-04-09 08:25 | A.OFFVIS_ITS ---
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 The patient had a prostate biopsy for an elevated PSA of 5.38. Prostate biopsies came back benign. The patient was started on Proscar, 5 alpha reductase inhibitor therapy. Results discussed include repeat PSA performed 03/04/2025 was 4.81 ng/mL. Plan will be further evaluation with MRI of the prostate. 10/10/24-- Fco is a 69-year-old male who presents today for a one year FU for elevated PSA and BPH. He denies irritative voiding symptoms. He states he is voiding without difficulty. Continue tamsulosin and ordered Proscar 5 mg daily Follow-up in one year PSA prior. 10/10/2023--Fco is a 68-year-old male who presents today for a follow-up. He is followed today for biopsy results. PSA results from 08/18/2023 revealed 5.29. He is a status post prostate biopsy for elevated PSA which was done on 09/28/2023. Biopsy results were benign. I have reviewed the US results from 09/28/2023 showed the estimated measurement of the prostate was 75 mL. 05/28/23-- The patient complains having urinary symptoms of urgency and weak stream. Denies dysuria, or gross hematuria PSA results reviewed--05/04/23-- 5.38; PSA---08/01/23-- 4.98. AUA symptom score: 13. Prostate exam: moderately enlarged and a nodular area noted at the right apex. [facility] Medical History Sleep apnea with use of continuous positive airway pressure (CPAP) BPH (benign prostatic hyperplasia) Surgical History Hx of colonoscopy Cataract, left eye History of basal cell carcinoma excision S/P laparoscopic hernia repair Family History Father CAD (coronary artery disease) Mother Heart palpitations Social History Housing: House Alcohol intake: current Alcohol intake frequency: holidays/special occasions o nly Patient Tobacco Use Status: Former Tobacco user Tobacco use type: Cigarette e-Cigarette/Vaping Use: Never Used Second Hand Smoke Exposure: Yes service: No Current occupational status: employed Current occupation: [employer] Cognitive needs: No Hearing needs: No Vision needs: No Review of Systems Const All systems reviewed & are unremarkable except as noted in HPI and below Reports no additional complaints Eyes Reports no additional complaints ENT Reports no additional complaints Card Reports no additional complaints Resp Reports no additional complaints GI Reports no additional complaints Reports as per HPI Musc Reports no additional complaints Skin/Breast Reports system reviewed and no additional complaints, except as documented Neuro Reports no additional complaints Psych Reports no additional complaints Endo Reports no additional complaints Poncho/Lymph Reports no additional complaints Aller/Immun Reports no additional complaints Telehealth Telehealth Telehealth Platform: [facility] Location of provider rendering services: practice address Location of patient: address on file Patient Identification confirmed using: Name, : Yes Telehealth method: video Patient verbally consented to treatment: Yes Patient verbally consented to billing insurance company: Yes Patient informed of any privacy concerns related to visit: Yes Assessment & Plan Assessment & Plan (1) Elevated PSA: Code(s): R97.20 - Elevated prostate specific antigen [PSA] Category: Medical (2) BPH loc w urin obs/LUTS: Code(s): N40.1 - Benign prostatic hyperplasia with lower urinary tract symptoms Category: Medical Plan Continue finasteride. Plan will be further evaluation with MRI of the prostate. Orders: Orders MR Prostate wo/w con 3 Months R97.20 - Elevated prostate specific antigen [PSA] Medications: Refilled finasteride (Proscar) 5 mg PO DAILY 90 days 90 tabs 3RF Patient Instructions: The patient had an opportunity to ask questions regarding treatment plan. The patient expressed understanding and agreement with the above treatment plan. The patient is aware they should contact our office by phone for worsening of their current condition or the appearance of new symptoms. Compliance is encouraged with any medications and followup testing that is ordered. It is a privilege to be allowed the opportunity to participate in the urologic care of your patient. If you have any questions or concerns regarding treatment for the above conditions please do not hesitate to contact me. The office telephone contact is [phone]. This note is constructed in part using voice recognition software. While every effort has been made to ensure accuracy assistant professor of nursing errors may have been included. Yours sincerely, Rosemarie Pandya MD Coding Level of Care Code Est Pt Level 4 (18380) Complex EM visit Add On G2211 Diagnoses Elevated PSA R97.20 BPH loc w urin obs/LUTS N40.1
--- OUTSIDE RECORDS SUMMARY | 2025-04-09 08:36 | XMS_ITS | Patient Health Record ---
Author Organization [facility] Address [address] [place] [address] Care Team Providers Care Diamond Sorter Name Role Phone Humberto Ayala Primary Care Provider Sd Hood Unavailable [phone] Allergies Allergen (clinical drug ingredient) Drug/Non Drug [...] Problem Status W/U Status Risk Notes Problem 610575331 Encounter for screening for malignant neoplasm of colon (Z12.11) Active confirmed Problem 030738783 History of adenomatous polyp of colon (Z86.010) Active confirmed Problem 756428821556889 Preprocedural examination (Z01.818) Active confirmed Problem History of colon polyps (Z86.010) Active confirmed Problem Diverticulosis of colon (981481741) Diverticulosis of colon (K57.30) Active confirmed Plan Of Treatment Future Test Test Name Order Date COLONOSCOPY 05/05/2015 COLONOSCOPY 01/03/2022 Insurance Providers Payer Name Payer Address Payer Phone Subscriber Number Group Number Insured Name Patient Relationship to Insured Coverage Start Date Coverage End Date [facility] [address] [place] [address] [id number] FABI HAYNES Self - patient is the insured Medical (General) History Medical History History ICD Code Denies [place],DM,CVA,Lung disease,renal dise ase In 2007 he underwent [...]
== END 2025-04-09 11:20 | disposition home or self-care (01) ==
LOC: HO.HUSH 08:25
PROVIDERS: PCP Physician Assistant; Visit Provider Urology
DX: R97.20 Elevated prostate specific antigen [PSA] (principal); N40.1 Benign prostatic hyperplasia with lower urinary tract symptoms
CPT/HCPCS: 99214

== ENCOUNTER → 2025-04-09 08:25 | Outpatient (BNVA) | payer BC, SELFPAY | PROVIDERS: PCP Physician Assistant; Visit Provider Urology ==

== ENCOUNTER 2025-04-28 09:07 | Outpatient (AMB) | payer BC, SELFPAY ==
--- NOTE | 2025-04-28 09:12 | MHC.OFFWIV ---
Intake Vital Signs 04/28/25 09:17 Weight 219 lb BP 126/80 Blood Pressure Location Rt brachial Position Sitting Pulse 66 Pulse Source Pulse Oximeter Temp 99.1 F Temp Source Oral Pulse Oximetry (%) 97 Oxygen Delivery Method Room Air Intake Visit Reasons: EP sore throat Intake Note: Patient here for sore throat that started yesterday. Patient Tobacco Use Status: Former Tobacco user Allergies Penicillins Allergy (Mild, Verified 04/28/25 09:18) RASH finasteride Adverse Reaction (Intermediate, Verified 04/28/25 09:18) Dizziness Do you need a note to return to daycare/school/sports/work: No HPI HPI Comments History of Present Illness Details History - The patient is a 70-year-old male presenting with a sore throat. - The sore throat began yesterday, worsening significantly by night, prompting him to abstain from work. - Temperature measured at 99.1?F is not considered febrile. - No additional symptoms such as fever, earache, sinus discomfort, or respiratory issues. - Reports episodic sneezing but does not identify as having seasonal allergies. - Denies frequent interaction with children, which may limit exposure to common infections. - Usage of red lozenges noted, which might contribute to visible throat redness. 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 Physical Exam General: Cooperative, healthy appearing, comfortable and no acute distress Orientation/consciousness: Patient oriented x3 Limitations: No limitations Head: Normal to inspection Ears: Hearing grossly normal bilaterally, external ears normal and TM's normal bilaterally Nose: Normal external nose present, Normal nares present and No nasal discharge present Face and sinus: Normal facial exam and Yes sinuses nontender Mouth: Normal oral and palatal mucosa present and moist mucous membranes Throat: Yes tonsils normal, Yes uvula midline. Posterior oropharynx erythema, no exudates Eyes: Appearance normal, both eyes and all related structures Neck: Normal visual inspection Respiratory: Clear to auscultation bilaterally. Normal respiratory effort, able to speak in complete sentences, no respiratory distress, not tachypneic, no tripod positioning and no use of accessory muscles Cardiovascular: Regular rate and rhythm. Normal S1 and S2 Skin: No rashes or lesions noted Neuro: Patient oriented x3 Extremities: Normal to inspection and Yes no clubbing, cyanosis or edema [facility] Medical History Sleep apnea with use of continuous positive airway pressure (CPAP) BPH (benign prostatic hyperplasia) Surgical History Hx of colonoscopy Cataract, left eye History of basal cell carcinoma excision S/P laparoscopic hernia repair Family History Father CAD (coronary artery disease) Mother Heart palpitations Social History Housing: House Alcohol intake: current Alcohol intake frequency: holidays/special occasions only Patient Tobacco Use Status: Former Tobacco user Tobacco use type: Cigarette e-Cigarette/Vaping Use: Never Used Second Hand Smoke Exposure: Yes service: No Current occupational status: employed Current occupation: [employer] Cognitive needs: No Hearing needs: No Vision needs: No Review of Systems Const All systems reviewed & are unremarkable except as noted in HPI and below Physical Exam Vital Signs: Last Vital Signs Temp 99.1 F 04/28/25 09:17 Pulse 66 04/28/25 09:17 BP 126/80 04/28/25 09:17 Pulse Ox 97 04/28/25 09:17 Oxygen Delivery Method Room Air 04/28/25 09:17 Assessment & Plan Assessment & Plan (1) Seasonal allergic reaction: Code(s): J30.2 - Other seasonal allergic rhinitis Plan: VSS, pt well appearing and PE unremarkable. Rapid strep negative. - Initiate antihistamine therapy, specifically levocetirizine, for relief from allergy-induced symptoms due to environmental factors. - Encourage symptomatic management with warm beverages, honey, and lozenges to ease throat discomfort. - Negative rapid streptococcal test result; advised follow-up if condition does not improve or if exacerbated symptoms are noted. Patient was informed and verbally consented to the use of an ambient scribe for clinic note documentation during this visit Coding Level of Care Code Est Pt Level 3 (19348) Diagnoses Seasonal allergic reaction J30.2
[2025-04-28 09:17] VITALS: BP 126/80; PULSE 66; TEMP 37.3; O2SAT 97
--- OUTSIDE RECORDS SUMMARY | 2025-04-28 09:52 | XMS_ITS | Patient Health Record ---
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 Role Phone Humberto Ayala Primary Care Provider Sd Hood Unavailable [phone] Allergies Allergen (clinical drug ingredient) Drug/Non Drug [...] Problem Status W/U Status Risk Notes Problem 713632749 Encounter for screening for malignant neoplasm of colon (Z12.11) Active confirmed Problem 784287652 History of adenomatous polyp of colon (Z86.010) Active confirmed Problem 521792953863131 Preprocedural examination (Z01.818) Active confirmed Problem History of colon polyps (Z86.010) Active confirmed Problem Diverticulosis of colon (570266771) Diverticulosis of colon (K57.30) Active confirmed Plan Of Treatment Future Test Test Name Order Date COLONOSCOPY 05/05/2015 COLONOSCOPY 01/03/2022 Insurance Providers Payer Name Payer Address Payer Phone Subscriber Number Group Number Insured Name Patient Relationship to Insured Coverage Start Date Coverage End Date [facility] [address] [place] [address] [phone] [id number] FABI HAYNES Self - patient is the insured Medical (General) History Medical History History ICD Code Denies [place],DM,CVA,Lung disease,renal dise ase In 2007 he underwent [...]
== END 2025-04-28 10:32 | disposition home or self-care (01) ==
PROVIDERS: PCP Physician Assistant; Visit Provider Physician Assistant
DX: Z13.9 Encounter for screening, unspecified (principal); J30.2 Other seasonal allergic rhinitis

== ENCOUNTER → 2025-04-28 09:07 | Outpatient (BNVA) | payer BC, SELFPAY | PROVIDERS: PCP Physician Assistant; Visit Provider Physician Assistant | DX: J30.2 Other seasonal allergic rhinitis (principal) | CPT/HCPCS: 87880 ==

== ENCOUNTER 2025-07-02 06:40 | Outpatient (REF) | payer BC, SELFPAY ==
[2025-07-02 07:56] LABS: Hemoglobin A1C 164.6702 umol/L; Total Hemoglobin (HGBA1C) 3773.6029 umol/L
[2025-07-02 08:19] LABS: Alanine Aminotransferase 69 U/L (0-40); Albumin Level 4.3 g/dL (3.5-5.0); Alkaline Phosphatase 72 U/L (39-117); Anion Gap 12 (12-20); Aspartate Amino Transferase 33 U/L (5-37); Blood Urea Nitrogen 14 mg/dL (9-16); Calcium 8.9 mg/dL (8.4-10.2); Carbon Dioxide 27 mmol/L (22-29); Chloride 108 mmol/L (96-108); Cholesterol 262 mg/dL (<200); Estimated Glomerular Filt Rate > 60; HDL Cholesterol 46 mg/dL (>40); Potassium 4.1 mmol/L (3.3-5.1); Sodium 143 mmol/L (135-145); Total Protein 6.8 g/dL (6.5-8.0); Triglycerides 206 mg/dL (<150)
== END 2025-07-02 06:41 | disposition home or self-care (01) ==
LOC: HO.LAB 06:40
PROVIDERS: PCP Physician Assistant; Visit Provider Physician Assistant
DX: R73.09 Other abnormal glucose (principal); E78.00 Pure hypercholesterolemia, unspecified
CPT/HCPCS: 36415; 80053; 80061; 83036

== ENCOUNTER 2025-07-03 07:31 | Outpatient (REF) | payer BC, SELFPAY ==
--- OUTSIDE RECORDS SUMMARY | 2025-07-03 07:33 | XMS_ITS | Patient Health Record ---
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 Role Phone Humberto Ayala Primary Care Provider Sd Hood Unavailable [phone] Allergies Allergen (clinical drug ingredient) Drug/Non Drug [...] Problem Status W/U Status Risk Notes Problem 750389226 Encounter for screening for malignant neoplasm of colon (Z12.11) Active confirmed Problem 283906796 History of adenomatous polyp of colon (Z86.010) Active confirmed Problem 161093731353017 Preprocedural examination (Z01.818) Active confirmed Problem History of colon polyps (Z86.010) Active confirmed Problem Diverticulosis of colon (563774331) Diverticulosis of colon (K57.30) Active confirmed Plan Of Treatment Future Test Test Name Order Date COLONOSCOPY 05/05/2015 COLONOSCOPY 01/03/2022 Insurance Providers Payer Name Payer Address Payer Phone Subscriber Number Group Number Insured Name Patient Relationship to Insured Coverage Start Date Coverage End Date [facility] [address] [place] [address] [id number] FABI HAYNES Self - patient is the insured Medical (General) History Medical History History ICD Code Denies [place],DM,CVA,Lung disease,renal dise ase In 2007 he underwent [...]
[2025-07-03 09:26] LABS: Prostate Specific Antigen 8.38 ng/mL (<0.05-4.0)
== END 2025-07-03 07:32 | disposition home or self-care (01) ==
LOC: HO.LAB 07:31
PROVIDERS: PCP Physician Assistant; Visit Provider Urology
DX: Z12.5 Encounter for screening for malignant neoplasm of prostate (principal); R97.20 Elevated prostate specific antigen [PSA]; N40.0 Benign prostatic hyperplasia without lower urinary tract symptoms
CPT/HCPCS: 36415; 84153

== ENCOUNTER 2025-07-07 08:24 | Outpatient (AMB) | payer BC, SELFPAY ==
--- NOTE | 2025-07-07 08:27 | MHC.PC.OV ---
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: No Accompanied by: Self / Same As Patient Allergies Penicillins Allergy (Mild, Verified 07/07/25 08:30) RASH finasteride Adverse Reaction (Intermediate, Verified 07/07/25 08:30) Dizziness Tobacco use date assessed: 07/07/25 Fall risk assessment: No Falls in past year Last assessed Fall Risk: 07/07/25 Dental Screening Dental Screen Date: 07/07/25 Did you have a dental visit in the last 12 months?: Yes Did you have a dental problem in the last 6 months where you did not have access to dental care?: No Was dental information given to patient?: Patient has dentist HPI [facility] 07/15/25 HPI Details Patient is a 70-year-old male, the patient of GABRIEL Flores. He was last seen in office on 03/10/2025 The patient is presenting with a need for preoperative evaluation for cataract surgery. He reports longstanding cataracts significantly impacting vision. Reports that he feels like he has a piece of wax paper over his right eye. The patient will be doing the right left eye only. Surgeon/location: Dr. Allyssa Blanc at [facility], [facility]. The procedure will be completed at the [facility]. Date: 07/15/2025 (RIGHT EYE ONLY) Anesthesia: MAC. The patient had his left eye completed under similar circumstances without any issues. The patient denies any post surgery hypothermia or clotting disorder and he is not on any blood thinners or DMARDs. Medical history significant for prediabetes, BPH loc w/urine obs/LUTs, hypercholesteremia, cataract, obesity, elevated PSA Patient denies chest pain, shortness of breath, heart palpitation and dizziness. Denies abdominal pain or change in bowel habits. Reports that he urinates frequently. The patient had a CMP and A1c done earlier this month. The patient was sent for an CBC and EKG to further evaluate. Patient EKG was sinus Prasad with a left axis deviation. The patient is asymptomatic, and he only has a history of on and off high blood pressure. This could be worked up further after procedure but will not interfere the patient procedure. [facility] Medical History Sleep apnea with use of continuous positive airway pressure (CPAP) BPH (benign prostatic hyperplasia) Surgical History Hx of colonoscopy Cataract, left eye History of basal cell carcinoma excision S/P laparoscopic hernia repair Family History Father CAD (coronary artery disease) Mother Heart palpitations Social History Housing: House Alcohol intake: current Alcohol intake frequency: holidays/special occasions only Patient Tobacco Use Status: Former Tobacco user Tobacco use type: Cigarette e-Cigarette/Vaping Use: Never Used Second Hand Smoke Exposure: Yes service: No Current occupational status: employed Current occupation: [employer] Cognitive needs: No Hearing needs: No Vision needs: No Questionnaire PHQ-9 Over the last 2 weeks, how often have you been bothered by any of the following problems? 1. Little interest or pleasure in doing things: not at all 2. Feeling down, depressed, or hopeless: not at all 3. Trouble falling or staying asleep, or sleeping too much: not at all 4. Feeling tired or having little energy: not at all 5. Poor appetite or overeating: not at all 6. Feeling bad about yourself - or that you are a failure or have let yourself or your family down: not at all 7. Trouble concentrating on things, such as reading the newspaper or watching television: not at all 8. Moving or speaking so slowly that other people could have noticed. Or the opposite - being so fidgety or restless that you have been moving around a lot more than usual: not at all 9. Thoughts that you would be better off or of hurting yourself in some way: not at all Total score: 0 Depression Screening Interpretation: Negative Depression Screening Done: Yes Source: Developed by Drs. Sd May, Reuben Evans and colleagues, with an educational noé from [employer]. Thrive Questionnaire Date Thrive assessed: 07/07/25 I am a: Patient What is your living situation today?: I have a steady place to live Within the past 12 months, did the food you bought not last and you didn't have the money to get more?: Never true Within the past 12 months, did you worry whether your food would run out before you got money to buy more?: Never true Do you have trouble paying for medicines?: No Do you have trouble getting transportation to medical appointments?: No Do you have trouble paying your heating and electricity bill?: No Do you have trouble taking care of your child, family member or friend?: No Do you have trouble with day-to-day activities such as bathing, preparing meals, shopping, managing finances, etc.?: No Are you currently unemployed and looking for a job?: No Are you interested in more education?: No Please select the resources that you would like help with: None Currently or been in a relationship where the following occur: No concerns reported THRIVE Score: 0 AUDIT C Alcohol Use Questionnaire (AUDIT-C) 1. How often do you have a drink containing alcohol?: Monthly or less 2. How many drinks containing alcohol do you have on a typical day when you are drinking?: 1 or 2 3. How often do you have six or more drinks on one occasion?: Never Total Score: 1 EBONIE-7 AMB Questionnaire EBONIE-7 Date EBONIE - 7 assessed: 07/07/25 Feeling nervous, anxious, or on edge: 0 = Not at all Not being able to stop or control worryin = Not at all Worrying too much about different things: 0 = Not at all Trouble relaxin = Not at all Being so restless that it is hard to sit still: 0 = Not at all Becoming easily annoyed or irritable: 0 = Not at all Feeling afraid as if something awful might happen: 0 = Not at all Total EBONIE-7 score (0-4 normal; 5-9 mild; 10-14 moderate; 15-21 severe): 0 Source: Developed by Drs. Sd May, Reuben Evans and colleagues, with an educational noé from [employer]. Review of Systems Const Denies headache(s) Eyes Denies loss of vision ENT Denies vertigo, Denies dizziness, Denies headache(s) and Denies sore throat Card Denies chest pain, Denies leg edema and Denies lightheadedness Resp Denies cough, Denies hemoptysis and Denies wheezing GI Denies abdominal pain, Denies melena, Denies constipation, Denies diarrhea and Denies vomiting Denies dysuria, Denies urinary frequency and Denies urinary urgency Musc Denies arthralgias, Denies joint swelling, Denies numbness and Denies tingling Neuro Denies Abnormal speech present, Denies behavioral changes, Denies vertigo, Denies dizziness, Denies headache(s), Denies loss of vision, Denies memory loss, Denies numbness and Denies tingling Psych Denies anxiety, Denies behavioral changes, Denies depression, Denies memory loss and Denies panic attacks Poncho/Lymph Denies easy bleeding and Denies easy bruising Aller/Immun Denies wheezing Physical exam (Primary Care) Vital Signs: Last Vital Signs Temp 98.4 F 07/07/25 08:29 Pulse 54 07/07/25 08:29 Resp 18 07/07/25 08:29 BP 122/78 07/07/25 08:29 Pulse Ox 97 07/07/25 08:29 Oxygen Delivery Method Room Air 07/07/25 08:29 BMI result Body Mass Index 30.3 Tobacco/Smoking Status: Tobacco use Status Tobacco use date assessed 07/07/25 07/07/25 08:32 Patient Tobacco Use Status Former Tobacco user 07/07/25 08:28 Tobacco use type Cigarette 07/07/25 08:28 e-Cigarette/Vaping Use Never Used 07/07/25 08:28 PHQ-9: PHQ-9 Score PHQ-9: Total score 0 07/07/25 13:05 Depression Screening Interpretation: Negative Thrive Assessment: Date of Thrive Assessment Date Thrive assessed 07/07/25 07/07/25 08:32 Currently or been in a relationship where the following occur: No concerns reported Const General: healthy appearing, no acute distress, alert and awake Nutritional Appearance: well nourished Orientation/consciousness: oriented to person, oriented to place and oriented to time HENMT Ears: TM's normal bilaterally General nose exam: Normal nasal mucous membranes and turbinates present Eyes Conjunctivae: conjunctivae normal Sclerae: sclerae normal Pupils: Equal, round and reactive pupils present Neck Neck: Yes no lymphadenopathy and Yes no JVD Thyroid: Thyroid normal Carotids: no bruits Resp Effort & Inspection: normal respiratory effort and not tachypneic Auscultation: no crackles, no rales, no rhonchi and no wheezes Cardio Rate: regular rate Rhythm: regular rhythm Heart sounds: no murmurs and normal S1 and S2 GI Palpation (GI): Soft to palpation, nontender, no hepatomegaly and no splenomegaly Auscultation: normal bowel sounds Skin General skin exam: no rashes or lesions noted and dry skin Neuro General: oriented to person, oriented to place and oriented to time Cranial nerves: Yes Equal, round and reactive pupils present Speech: No Abnormal speech present Gait exam (Neuro): Normal gait present Motor exam (neuro): no tremor noted Extrem Right upper extremity: full ROM Left upper extremity: full ROM Right lower extremity: full ROM; no edema Left lower extremity: full ROM; no edema Psych Mental Status: mental status grossly normal Speech and movement: Normal speech and movement present Affect: normal affect Attitude: cooperative Thought process: Normal thought process present Results Reviewed Results Reviewed: Laboratory Tests 07/02/25 07/03/25 07/07/25 06:52 07:43 09:15 WBC 7.7 RBC 4.53 L Hgb 14.3 Hct 41.9 L MCV 92.5 MCH 31.6 MCHC 34.1 RDW 12.9 Plt Count 264 MPV 9.8 Immature Gran % (Auto) 0.4 Sodium 143 Potassium 4.1 Chloride 108 Carbon Dioxide 27 Anion Gap 12 BUN 14 Creatinine 0.92 Estimated GFR > 60 Fasting Glucose 119 H Estimat Average Glucose 128 Hemoglobin A1c % 6.1 H Calcium 8.9 Total Bilirubin 0.4 AST 33 ALT 69 H Alkaline Phosphatase 72 Total Protein 6.8 Albumin 4.3 Triglycerides 206 H Cholesterol 262 H LDL Cholesterol, Calc 175 H HDL Cholesterol 46 Prostate Specific Ag 8.38 H Coding Level of Care Code Est Pt Level 4 (75896) Diagnoses Preoperative clearance Z01.818 Cataract of right eye, unspecified cataract type H26.9 Cataract type: unspecified BPH loc w urin obs/LUTS N40.1 Elevated PSA R97.20 Class 1 obesity due to excess calories without serious comorbidity with body mass index (BMI) of 33.0 to 33.9 in adult E66.09; Z68.33 Body mass index: BMI 33.0-33.9 Obesity classification: adult class 1 (BMI 30 - 34.9) Obesity type: due to excess calories Serious obesity comorbidity presence: without serious comorbidity Hypercholesteremia E78.00 Prediabetes R73.03 Time Spent (min) 39 Assessment & Plan Assessment & Plan (1) Preoperative clearance: Code(s): Z01.818 - Encounter for other preprocedural examination Category: Medical Plan: Regarding preop clearance, the patient is at acceptable risk for proposed surgery. Reviewed with the patient that no surgery is completely free of risk and that this examination is to assist the surgeon in reviewing informed consent. The patient will undergo cataract surgery on the right eye, with preoperative preparations including a complete blood count CBC) and an electrocardiogram EKG) to ensure fitness for anesthesia. He is advised to have these tests done promptly to facilitate the upcoming procedure scheduled for the . Additionally, the patient is scheduled for an MRI to evaluate prostate issues, which is being coordinated with his urologist. Patient was informed and verbally consented to the use of an ambient scribe for clinic note documentation during this visit. (2) Right cataract: Code(s): H26.9 - Unspecified cataract Category: Medical Qualifiers: Cataract type: unspecified Qualified Code(s): H26.9 - Unspecified cataract Plan: Patient has a longstanding history of cataract in both eyes. He had the left eye cataract surgery done few years back. The right eye has been bothersome with a feeling of a rough material over the eye. Patient has plan cataract surgery on 07/15/2025. (3) BPH loc w urin obs/LUTS: Code(s): N40.1 - Benign prostatic hyperplasia with lower urinary tract symptoms Category: Medical Plan: Patient has BPH with elevated PSA. Prostate biopsy on 09/21/23 was benign. He was started Proscar; he does not appear to be taking this anymore. He is seeing urology with plans to for MRI evaluation of the prostate. (4) Elevated PSA: Code(s): R97.20 - Elevated prostate specific antigen [PSA] Category: Medical Plan: same above (5) Obese: Code(s): E66.9 - Obesity, unspecified Category: Medical Qualifiers: Body mass index: BMI 33.0-33.9 Obesity classification: adult class 1 (BMI 30 - 34.9) Obesity type: due to excess calories Serious obesity comorbidity presence: without serious comorbidity Qualified Code(s): E66.09 - Other obesity due to excess calories; Z68.33 - Body mass index [BMI] 33.0-33.9, adult Plan: Encouraged to exercise for at least 30 minutes a day/5 days a week Healthy eating discussed. Encouraged to eat fruits/vegetables, protein-fish/baked chicken, and to avoid salty/fried foods, sweets, caffeine and carbohydrates. Encouraged to increase water intake 6-8 glasses a day (6) Hypercholesteremia: Code(s): E78.00 - Pure hypercholesterolemia, unspecified Category: Medical Plan: Triglycerides 206, total cholesterol 262, LDL 175, HDL 46. Discussed lifestyle modifications including dietary changes and physical activity (7) Prediabetes: Code(s): R73.03 - Prediabetes Category: Medical Plan: Fasting glucose 119, A1c 6.1% decreased 3 points from 6.4%. Discussed lifestyle modification. We will continue to monitor fasting glucose and A1c Orders: Orders Complete Blood Count Auto Diff Today Z01.818 - Encounter for other preprocedural examination ECG 12 lead EKG Today Z01.818 - Encounter for other preprocedural examination
[2025-07-07 08:29] VITALS: BP 122/78; PULSE 54; RESP 18; TEMP 36.9; O2SAT 97; BMI 30.3
--- OUTSIDE RECORDS SUMMARY | 2025-07-07 09:08 | XMS_ITS | Patient Health Record ---
Author Organization [facility] Address [address] [place] [id number] Care Team Providers Care Manager Of [facility] Name Role Phone Humberto Ayala Primary Care Provider Sd Hood Unavailable [phone] Allergies Allergen (clinical drug ingredient) Drug/Non Drug [...] Problem Status W/U Status Risk Notes Problem 126166210 Encounter for screening for malignant neoplasm of colon (Z12.11) Active confirmed Problem 333563519 History of adenomatous polyp of colon (Z86.010) Active confirmed Problem [id number] Preprocedural examination (Z01.818) Active confirmed Problem History of colon polyps (Z86.010) Active confirmed Problem Diverticulosis of colon (099987226) Diverticulosis of colon (K57.30) Active confirmed Plan Of Treatment Future Test Test Name Order Date COLONOSCOPY 05/05/2015 COLONOSCOPY 01/03/2022 Insurance Providers Payer Name Payer Address Payer Phone Subscriber Number Group Number Insured Name Patient Relationship to Insured Coverage Start Date [facility]age End Date [facility] [address] [place] [address] [id number] [id number] Self - patient is the insured Medical (General) History Medical History History ICD Code Denies HI,DM,CVA,Lung disease,renal dise ase In 2007 he underwent [...]
== END 2025-07-07 11:24 | disposition home or self-care (01) ==
LOC: HO.HMCH 08:25
PROVIDERS: PCP Physician Assistant
DX: Z01.818 Encounter for other preprocedural examination (principal); H26.9 Unspecified cataract; N40.1 Benign prostatic hyperplasia with lower urinary tract symptoms; R97.20 Elevated prostate specific antigen [PSA]; E66.09 Other obesity due to excess calories; Z68.33 Body mass index [BMI] 33.0-33.9, adult; E78.00 Pure hypercholesterolemia, unspecified; R73.03 Prediabetes

== ENCOUNTER → 2025-07-07 08:24 | Outpatient (REF) | payer BC, SELFPAY ==
--- NOTE | 2025-07-07 09:04 | ECG_ITS ---
Test Reason : preop Blood Pressure : */* mmHG Vent. Rate : 53 BPM Atrial Rate : 53 BPM P-R Int : 182 ms QRS Dur : 92 ms QT Int : 432 ms P-R-T Axes : 11 -30 -3 degrees QTcB Int : 405 ms Sinus bradycardia Left axis deviation Abnormal ECG No previous ECGs available Referred By: Amaury Smith Electronically Signed By: NAI QIU MD
[2025-07-07 09:18] LABS: MANUAL DIFF FLAG NO
[2025-07-07 09:31] LABS: Hematocrit 41.9 % (42.0-52.0); Hemoglobin 14.3 g/dl (14.0-18.0); Imm Gran Abs Auto 0.03 X10*3/uL (0.00-0.03); Imm Gran Pct Auto 0.4 % (0.0-0.4); Lymphocytes Absolute Auto 2.1 X10*3/uL (1.2-4.9); Mean Corpuscular HGB Conc 34.1 g/dl (31.0-36.0); Mean Corpuscular Hemoglobin 31.6 pg (27.0-33.0); Mean Corpuscular Volume 92.5 fL (80.0-98.0); NRBC Abs Auto 0.000 X10*3/uL (0.0-0.012); NRBC Pct Auto 0.0 /100WBC (0.0-0.2); Platelet Count 264 X10*3/uL (160-400); Red Blood Count 4.53 X10*6/uL (4.60-5.80); White Blood Count 7.7 X10*3/uL (4.8-10.8)
== END ==
LOC: HO.CARD 08:24
PROVIDERS: PCP Physician Assistant
DX: Z01.818 Encounter for other preprocedural examination (principal); H26.9 Unspecified cataract; N40.1 Benign prostatic hyperplasia with lower urinary tract symptoms; R97.20 Elevated prostate specific antigen [PSA]; E66.09 Other obesity due to excess calories; Z68.33 Body mass index [BMI] 33.0-33.9, adult; E78.00 Pure hypercholesterolemia, unspecified; R73.03 Prediabetes
CPT/HCPCS: 36415; 85025; 93005; 96127

== ENCOUNTER → 2025-07-07 09:04 | Outpatient (BNV) | payer BC, SELFPAY | PROVIDERS: PCP Physician Assistant; Visit Provider Internal Medicine Cardiovascular Disease | DX: R00.1 Bradycardia, unspecified (principal) | CPT/HCPCS: 93010 ==

== ENCOUNTER 2025-07-09 10:12 | Outpatient (REF) | payer BC, SELFPAY ==
--- OUTSIDE RECORDS SUMMARY | 2025-07-09 11:46 | XMS_ITS | Patient Health Record ---
Author Organization [facility] Address [address] [place] [id number] Care Team Providers Care Hitting Coach Name Role Phone Humberto Ayala Primary Care Provider Sd Hood Unavailable [phone] Allergies Allergen (clinical drug ingredient) Drug/Non Drug [...] Problem Status W/U Status Risk Notes Problem [id number] Encounter for screening for malignant neoplasm of colon (Z12.11) Active confirmed Problem 504150571 History of adenomatous polyp of colon (Z86.010) Active confirmed Problem [id number] Preprocedural examination (Z01.818) Active confirmed Problem History of colon polyps (Z86.010) Active confirmed Problem Diverticulosis of colon (662295249) Diverticulosis of colon (K57.30) Active confirmed Plan Of Treatment Future Test Test Name Order Date COLONOSCOPY 05/05/2015 COLONOSCOPY 01/03/2022 Insurance Providers Payer Name Payer Address Payer Phone Subscriber Number Group Number Insured Name Patient Relationship to Insured Coverage Start Date Coverage End Date [facility] [address] [place] [address] [id number] [id number] HAYNES Self - patient is [...]
== END 2025-07-09 10:13 | disposition home or self-care (01) ==
LOC: HO.MRI 10:12
PROVIDERS: PCP Physician Assistant; Visit Provider Urology
DX: R97.20 Elevated prostate specific antigen [PSA] (principal)
CPT/HCPCS: 72197; 76377; A9585

== ENCOUNTER → 2025-07-09 10:12 | Outpatient (BNV) | payer BC, SELFPAY | PROVIDERS: PCP Physician Assistant; Visit Provider Radiology Diagnostic Radiology | DX: R97.20 Elevated prostate specific antigen [PSA] (principal) | CPT/HCPCS: 72197; 76377 ==

== ENCOUNTER 2025-07-27 11:20 | Outpatient (AMB) | payer BC, SELFPAY ==
--- NOTE | 2025-07-27 11:38 | MHC.OFFVIS ---
Intake Visit Reasons: 5m/MRI Intake Note: Patient presents today for 5 month/MRI Prostate MRI 07/09 Urology Meds-NONE Allergies to Antibiotic- Penicillins Blood Thinner- None Digital Imaging Specialist Required: No Accompanied by: Self / Same As Patient Allergies Penicillins Allergy (Mild, Verified 07/27/25 11:44) RASH finasteride Adverse Reaction (Intermediate, Verified 07/27/25 11:44) Dizziness HPI Comments Details: 07/27/25--Fco is being followed for elevated PSA. He had prostate biopsy 09/28/2023 with benign pathology. The patient was started on finasteride, this was discontinued because of side effects of dizziness. The patient presents with repeat PSA and MRI. I have reviewed results MRI notes 1 focal area that is suspicious PSA has increased-- 07/03/25--8.38 -MR prostate-07/09/25--Left posterolateral peripheral zone at the apex measuring 5 mm. Plan MRI target biopsies of the prostate. History of Present Illness The patient is a 70-year-old male presenting for evaluation of a prostate condition following MRI findings. The MRI revealed a small spot on the prostate, prompting the need for a rebiopsy to focus on the identified area. The patient's PSA level is elevated at 8.38, which may be attributed to prostate enlargement or the identified spot on the MRI. The patient has discontinued finasteride due to dizziness and recent cataract surgery, which required a temporary cessation of medications. The patient reports urinary frequency, which he attributes to fluid intake, with variability in symptoms from day to day. He expresses a preference to avoid medication unless necessary, opting to wait for biopsy results before resuming prostate medication. Plan-MRI target biopsies of the prostate. 04/12/25--09/28/2023 Fco is a 69-year-old male who I have been following due to BPH and elevated PSA. The patient had a prostate biopsy for an elevated PSA of 5.38. Prostate biopsies came back benign. The patient was started on Proscar, 5 alpha reductase inhibitor therapy. Results discussed include repeat PSA performed 03/04/2025 was 4.81 ng/mL. Plan will be further evaluation with MRI of the prostate. 10/10/24-- Fco is a 69-year-old male who presents today for a one year FU for elevated PSA and BPH. He denies irritative voiding symptoms. He states he is voiding without difficulty. Continue tamsulosin and ordered Proscar 5 mg daily Follow-up in one year PSA prior. 10/10/2023--Fco is a 68-year-old male who presents today for a follow-up. He is followed today for biopsy results. PSA results from 08/18/2023 revealed 5.29. He is a status post prostate biopsy for elevated PSA which was done on 09/28/2023. Biopsy results were benign. I have reviewed the US results from 09/28/2023 showed the estimated measurement of the prostate was 75 mL. 05/28/23-- The patient complains having urinary symptoms of urgency and weak stream. Denies dysuria, or gross hematuria PSA results reviewed--05/04/23-- 5.38; PSA---08/01/23-- 4.98. AUA symptom score: 13. Prostate exam: moderately enlarged and a nodular area noted at the right apex. [facility] Medical History Sleep apnea with use of continuous positive airway pressure (CPAP) BPH (benign prostatic hyperplasia) Surgical History Hx of colonoscopy Cataract, left eye History of basal cell carcinoma excision S/P laparoscopic hernia repair Family History Father CAD (coronary artery disease) Mother Heart palpitations Social History Housing: House Alcohol intake: current Alcohol intake frequency: holidays/special occasions only Patient Tobacco Use Status: Former Tobacco user Tobacco use type: Cigarette e-Cigarette/Vaping Use: Never Used Second Hand Smoke Exposure: Yes service: No Current occupational status: employed Current occupation: [employer] Cognitive needs: No Hearing needs: No Vision needs: No Review of Systems Const All systems reviewed & are unremarkable except as noted in HPI and below Reports no additional complaints Eyes Reports no additional complaints ENT Reports no additional complaints Card Reports no additional complaints Resp Reports no additional complaints GI Reports no additional complaints Reports as per HPI Musc Reports no additional complaints Skin/Breast Reports system reviewed and no additional complaints, except as documented Neuro Reports no additional complaints Psych Reports no additional complaints Endo Reports no additional complaints Poncho/Lymph Reports no additional complaints Aller/Immun Reports no additional complaints Results Reviewed Results Reviewed: Date of Service: 07/09/25 EXAMINATION: MR PROSTATE WITHOUT THEN WITH IV CONTRAST, MR EXAM UNLISTED HISTORY: R97.20 - Elevated prostate specific antigen [PSA] TECHNIQUE: 1.5T body coil survey of the pelvis was performed. Phase array coil imaging of the prostate was performed in multiplanar high resolution axial, coronal, sagittal fast spin echo T2 and axial T1 weighted imaging sequences. Axial diffusion imaging at intermediate and high field performed with ADC mapping. Next, 10 mL Gadavist was given by intravenous infusion, and dynamic axial imaging performed. 3-D reconstructions and post-processing were performed on an independent workstation by the radiologist for biopsy planning using image fusion. COMPARISON: There are no prior studies available for comparison. CLINICAL DATA: Most recent PSA: 8.38 ng/mL on 07/03/2025. PSA Density: 0.094 ng/mL squared Prostate Biopsy: Negative biopsy on 09/28/2023. FINDINGS: Prostate size: 5.9 x 5.7 x 5.1 cm. Calculated prostate volume is 89.2 mL. Hemorrhage: None. Transitional Zone: There is marked heterogeneous nodular hypertrophy of the transitional zone. Peripheral Zone: There is an area of interest in the peripheral zone as described below: Area of interest #1: Location: Left posterolateral peripheral zone at the apex measuring 5 mm (series 7, images 27-28). DWI PI-RADS v2.1 score: 4 T2 PI-RADS v2.1 score: 4 DCE PI-RADS v2.1 score: + Overall PI-RADS v2.1 score: 4 Capsular contact: no Extracapsular extension: None Seminal vesicle invasion: None Neurovascular bundle involvement: None Seminal Vesicles/Ejaculatory Ducts: Symmetric and normal in signal and caliber. Pelvic Lymph Nodes: No obturator or internal iliac lymph nodes meeting size criteria for adenopathy. Marrow Signal: Normal marrow signal and enhancement without focal lesion identified. IMPRESSION: Focus of abnormal signal intensity in the left posterolateral peripheral zone at the apex, suspicious for clinically significant prostate carcinoma. PI-RADS 4: High (clinically significant cancer is likely to be present) PI-RADS Assessment Categories PI-RADS 1: Very low (clinically significant cancer is highly unlikely to be present) PI-RADS 2: Low (clinically significant cancer is unlikely to be present) PI-RADS 3: Intermediate (the presence of clinically significant cancer is equivocal) PI-RADS 4: High (clinically significant cancer is likely to be present) PI-RADS 5: Very high (clinically significant cancer is highly likely to be present) Prostate biopsy 09/28/2023-- Diagnosis Prostate, needle core biopsies: A. Left base lateral: Benign prostatic tissue. B. Left base medial: Benign prostatic tissue. C. Left mid lateral: Benign prostatic tissue. D. Left mid medial: Benign prostatic tissue. E. Left apex lateral: Benign prostatic tissue. F. Left apex medial: Benign prostatic tissue. G. Right base lateral: Benign prostatic tissue. H. Right base medial: Benign prostatic tissue. I. Right mid lateral: Benign prostatic tissue. J. Right mid medial: Benign prostatic tissue. K. Right apex lateral: Benign prostatic tissue. L. Right apex medial: Benign prostatic tissue. Clinical History Elevated PSA Microscopic Description Microscopic sections show multiple needle cores of benign prostatic parenchyma with scattered foci of chronic inflammation throughout. Material Received A: Left base lateral B: Left base medial C: Left mid lateral D: Left mid medial E: Left apex lateral F: Left apex medial G: Right base lateral H: Right base medial I: Right mid lateral J: Right mid medial K: Right apex lateral L: Right apex medial Gross Description A. Received in formalin labeled ?left base lateral? is a glistening fragment of white soft tissue measuring 0.7 cm in length with a diameter of 0.1 cm which is wrapped in lens paper and entirely submitted for microscopic examination, 1 piece in cassette labeled A B. Received in formalin labeled ?left base medial? is a fragment of glistening, translucent white soft tissue measuring 1.0 cm in length with a diameter of 0.1 cm which is wrapped in lens paper and entirely submitted for microscopic examination, 1 piece in cassette labeled B. C. Received in formalin labeled ?left mid lateral? is a fragment of glistening, translucent white soft tissue measuring 1.0 cm in length with a diameter of 0.1 cm which is wrapped in paper and entirely submitted for microscopic examination, 1 piece in cassette labeled C. D. Received in formalin labeled ?left mid medial? is a fragment of glistening, translucent white soft tissue measuring 1.3 cm in length with a diameter of 0.1 cm which is wrapped in lens paper and entirely submitted for microscopic examination, 1 piece in cassette labeled D. E. Received in formalin labeled ?left apex lateral? is a fragment of glistening, translucent leiva white soft tissue measuring 0.9 cm in length with a diameter of 0.1 cm which is wrapped in lens paper and entirely submitted for microscopic examination, 1 piece in cassette labeled E. F. Received in formalin labeled left apex medial? is a fragment of glistening translucent leiva white soft tissue measuring 1.0 cm in length with a diameter of 0.1 cm which is wrapped in lens paper and entirely submitted for microscopic examination, 1 piece in cassette labeled F. G. Received in formalin labeled ?right base lateral? is a fragment of glistening, translucent white soft tissue measuring 1.0 cm in length with a diameter of 0.1 cm which is wrapped in lens paper and entirely submitted for microscopic examination, 1 piece in cassette labeled G. H. Received in formalin labeled ?right base medial? is a fragment of translucent soft white tissue measuring 1.3 cm in length with a diameter of 0.1 cm which is wrapped in lens paper and entirely submitted for microscopic examination, 1 piece in cassette labeled H. I. Received in formalin labeled ?right mid lateral? is a fragment of glistening, translucent white soft tissue measuring 1.5 cm in length with a diameter of 0.1 cm which is wrapped in lens paper and entirely submitted for microscopic examination, 1 piece in cassette labeled I. J. Received in formalin labeled ?right mid medial is a fragment of glistening, translucent white soft tissue measuring 1.6 cm in length with a diameter of 0.1 cm which is wrapped in lens paper and entirely submitted for microscopic examination, 1 piece in cassette labeled J. K. Received in formalin labeled ?right apex lateral? is a fragment of a glistening, translucent white soft tissue measuring 0.8 cm in length with a diameter of 0.1 cm which is wrapped in lens paper and entirely submitted for microscopic examination, 1 piece in cassette labeled K. L. Received in formalin labeled ?right apex medial? are 2 fragments of translucent white soft tissue measuring 0.6 and 1.4 cm in length. Both have a diameter of 0.1 cm. The specimen is wrapped in lens paper and entirely submitted for microscopic examination, 2 pieces in cassette labeled L Assessment & Plan Assessment & Plan (1) Elevated PSA: Code(s): R97.20 - Elevated prostate specific antigen [PSA] Category: Medical (2) BPH loc w urin obs/LUTS: Code(s): N40.1 - Benign prostatic hyperplasia with lower urinary tract symptoms Category: Medical Plan Plan MRI target biopsies of the prostate. Patient Instructions: The patient had an opportunity to ask questions regarding treatment plan. The patient expressed understanding and agreement with the above treatment plan. The patient is aware they should contact our office by phone for worsening of their current condition or the appearance of new symptoms. Compliance is encouraged with any medications and followup testing that is ordered. It is a privilege to be allowed the opportunity to participate in the urologic care of your patient. If you have any questions or concerns regarding treatment for the above conditions please do not hesitate to contact me. The office telephone contact is [phone]. This note is constructed in part using voice recognition software. While every effort has been made to ensure accuracy pelt inspector errors may have been included. Yours sincerely, Rosemarie Pandya MD Coding Level of Care Code Est Pt Level 4 (24448) Diagnoses Elevated PSA R97.20 BPH loc w urin obs/LUTS N40.1
--- OUTSIDE RECORDS SUMMARY | 2025-07-27 14:04 | XMS_ITS | Patient Health Record ---
Author Organization [facility] Address [address] [place] [id number] Care Team Providers Care Hog Raiser Name Role Phone Humberto Ayala Primary Care Provider Sd Hood Unavailable [phone] Allergies Allergen (clinical drug ingredient) Drug/Non Drug [...] Problem Status W/U Status Risk Notes Problem [id number] Encounter for screening for malignant neoplasm of colon (Z12.11) Active confirmed Problem 243119926 History of adenomatous polyp of colon (Z86.010) Active confirmed Problem 537843730107462 Preprocedural examination (Z01.818) Active confirmed Problem History of polyp of colon (situation) (426709474) History of colon polyps (Z86.010) Active confirmed Problem Diverticulosis of colon (762266003) Diverticulosis of colon (K57.30) Active confirmed Plan Of Treatment Future Test Test Name Order Date COLONOSCOPY 05/05/2015 COLONOSCOPY 01/03/2022 Insurance Providers Payer Name Payer Address Payer Phone Subscriber Number Group Number Insured Name Patient Relationship to Insured Coverage Start Date Coverage End Date [facility] PROFESSIONAL CLAIMS [address] [place] [address] [id number] Self - patient is the insured Medical (General) History Medical History History ICD Code Denies CO,DM,CVA,Lung disease,renal dise ase In 2007 he underwent [...]
== END 2025-07-27 12:11 | disposition home or self-care (01) ==
LOC: HO.HUSH 11:21
PROVIDERS: PCP Physician Assistant; Visit Provider Urology
DX: R97.20 Elevated prostate specific antigen [PSA] (principal); N40.1 Benign prostatic hyperplasia with lower urinary tract symptoms; Z13.9 Encounter for screening, unspecified
CPT/HCPCS: 99214

== ENCOUNTER → 2025-07-27 11:20 | Outpatient (BNVA) | payer BC, SELFPAY | PROVIDERS: PCP Physician Assistant; Visit Provider Urology | DX: R97.20 Elevated prostate specific antigen [PSA] (principal) | CPT/HCPCS: 81003 ==

== ENCOUNTER 2025-09-08 07:38 | Outpatient (REF) | payer BC, SELFPAY ==
--- OUTSIDE RECORDS SUMMARY | 2025-09-08 07:41 | XMS_ITS | Patient Health Record ---
Author Organization [facility] Address [address] [place] [phone] Care Team Providers Care Acid Extractor Name Role Phone Humberto Ayala Primary Care Provider Sd Hood Unavailable [phone] Allergies Allergen (clinical drug ingredient) Drug/Non Drug Allergy documented on EMR Reaction Allergy Type Onset Date Status Penicillin Unknown Drug Allergy Active Reason For Referral No Information Medications Medication SIG (Take, Route, Frequency, Duration) Notes Start Date End Date Status Flomax 0.4 MG 1 capsule Orally Onc e a day; Duration: 30 day(s) Active Immunizations Vaccine Route Administration Date Status Comme nts Influenza Unknown 07/20/2021 Administered Problems Problem Type SNOMED Code ICD Code Onset Dates Problem Status W/U Status Risk Notes Problem Screening for malignant neoplasm of colon (667086373) Encounter for screening for malignant neoplasm of colon (Z12.11) Active confirmed Problem History of adenomatous polyp of colon (251391456) History of adenomatous polyp of colon (Z86.010) Active confirmed Problem Preprocedural examination (938728200066488) Preprocedural examination (Z01.818) Active confirmed Problem History of polyp of colon (situation) (750020156) History of colon polyps (Z86.010) Active confirmed Problem Diverticulosis of colon (693519005) Diverticulosis of colon (K57.30) Active confirmed Plan Of Treatment Future Test Test Name Order Date COLONOSCOPY 05/05/2015 COLONOSCOPY 01/03/2022 Insurance Providers Payer Name Payer Address Payer Phone Subscriber Number Group Number Insured Name Patient Relationship to Insured Coverage Start Date Coverage End Date [facility] PROFESSIONAL CLAIMS [address] [place] [address] [id number] Self - patient is the insured Medical (General) History Medical History History ICD Code Denies RI,DM,CVA,Lung disease,renal dise ase In 2007 he underwent [...]
[2025-09-08] MEDS: Lidocaine HCl 1 % MPF 30 ML VIAL SUBCUT (08:36)
--- NOTE | 2025-09-08 09:07 | W.PM.OPN ---
Operative Note Operative Note Date of Service: 09/08/25 Narrative: Preoperative diagnosis: Elevated PSA Postoperative diagnosis: Elevated PSA Procedure: 1. transrectal ultrasound measurement of prostate 2. transrectal ultrasound-guided pudendal nerve block 3. transrectal ultrasound-guided prostate biopsy 12 core Surgeon: Dr. Arturo Chong Anesthetic: 10cc 1% lidocaine Indications for procedure: Elevated PSA 8.4 Counselling: Technical aspects, risks and benefits of proposed procedure were discussed in full. All questions have been answered, written consent has been obtained and patient agrees to proceed. Procedure: The patient was brought into the procedure area and placed in a left lateral decubitus position. Patient identity confirmed. Perioperative antibiotics confirmed. Safety pause time out performed. REENA was performed to dilate rectal sphincter Iodine 10cc with 60 cc gel was placed per rectum to reduce infection risk using a catheter tip syringe. 8 Hz Rowena rectal end-fire ultrasound probe was placed transrectally without difficulty. The prostate was visualized. Seminal vesicles were normal. Prostate margins were clearly demarcated. Bladder was seen superiorly. No cystic structures were noted No calcifications were noted at the surgical margin The prostate was otherwise homogeneous in nature. No obvious disruption of prostatic capsule seen suggestive of significant prostate cancer. No clear nodularity. The prostate was measured in 3 dimensions Prostatic Width: 5.8 cm Prostatic Height: 5.7 cm Urethral Length: 6.2 cm Total volume equals : 110 ml An ultrasound-guided pudendal nerve block was performed using a 22 gauge spinal needle in the sagittal plane. 4 cc of 1% lidocaine placed at the junction of each seminal vesicle and 2 cc placed at the apex of the prostate. A 12 core biopsy was performed with 6 cores each side using an 18 gauge prostate biopsy gun. Two cores each were taken at the prostate apex, mid and base on each side. Cores were spaced between lateral and medial aspects. Each core was examined as placed on specimen foam as part of quality control assistant to ensure a minimum 1 cm of length and minimal discontinuity. He tolerated the procedure well with minimal rectal bleeding. Blood pressure remained stable following procedure. He was able to ambulate to bathroom after 5 minutes. Printed instructions regarding antibiotic use and common adverse events from the procedure such as low-grade temperature, potential infection and bleeding were given. He understands to call the office or go to an emergency room should any of these events arise. Pathology: 12 core prostate biopsy. CPT code 16827: Transrectal ultrasound; this is a diagnostic test for evaluation of the prostate and surrounding structures, looking for abnormalities or suspicious areas worrisome for cancer CPT code 23629: Biopsy, prostate; needle or punch, single or multiple, any approach CPT code 57452: Ultrasonic guidance for needle placement (eg, biopsy, aspiration, injection, localization device), imaging supervision and interpretation
[2025-09-08 10:20] LABS: Alanine Aminotransferase 82 U/L (0-40); Albumin Level 4.4 g/dL (3.5-5.0); Alkaline Phosphatase 61 U/L (39-117); Anion Gap 9 (12-20); Aspartate Amino Transferase 44 U/L (5-37); Blood Urea Nitrogen 11 mg/dL (9-16); Calcium 9.3 mg/dL (8.4-10.2); Carbon Dioxide 28 mmol/L (22-29); Chloride 108 mmol/L (96-108); Cholesterol 258 mg/dL (<200); Estimated Glomerular Filt Rate > 60; HDL Cholesterol 52 mg/dL (>40); Potassium 4.4 mmol/L (3.3-5.1); Sodium 141 mmol/L (135-145); Total Protein 6.9 g/dL (6.5-8.0); Triglycerides 189 mg/dL (<150)
== END 2025-09-08 07:39 | disposition home or self-care (01) ==
LOC: HO.US 07:38
PROVIDERS: Absent Provider Physician Assistant; PCP Physician Assistant; Visit Provider Urology
DX: R97.20 Elevated prostate specific antigen [PSA] (principal); R73.03 Prediabetes; E78.00 Pure hypercholesterolemia, unspecified
CPT/HCPCS: 36415; 55700; 76942; 80053; 80061; 88305; J2003

== ENCOUNTER → 2025-09-08 07:38 | Outpatient (BNV) | payer BC, SELFPAY | PROVIDERS: Absent Provider Physician Assistant; PCP Physician Assistant; Visit Provider Urology | DX: R97.20 Elevated prostate specific antigen [PSA] (principal) | CPT/HCPCS: 55700; 76872; 76942 ==

== ENCOUNTER 2025-09-15 13:02 | Outpatient (AMB) | payer BC, SELFPAY ==
--- NOTE | 2025-09-15 13:18 | A.OFFPC_ITS ---
Vital Signs 09/15/25 13:21 Height 5 ft 10 in Weight 216 lb BMI 31.0 BP 140/80 H Blood Pressure Location Lt brachial Position Sitting Pulse 55 Pulse Source Pulse Oximeter Temp 97.1 F Temp Source Temporal Artery Scan Pulse Oximetry (%) 96 Oxygen Delivery Method Room Air Intake Visit Reasons: Annual Exam Intake Note: Patient is here today for a physical. Commissary Representative Required: No Insurance And Financial Services Agent: Not Required per policy Accompanied by: Self / Same As Patient Allergies Penicillins Allergy (Mild, Verified 09/15/25 14:00) RASH finasteride Adverse Reaction (Intermediate, Verified 09/15/25 14:00) Dizziness Medication List - Last Reconciled 09/15/25 by Humberto Ayala PA-C No Known Home Meds Tobacco use date assessed: 09/15/25 Fall risk assessment: No Falls in past year Last assessed Fall Risk: 09/15/25 Dental Screening Dental Screen Date: 07/07/25 HPI Annual Exam HPI Details Patient is a 70-year-old male here today for an annual physical .? Patient has a past medical history si gnificant for IGM, hypercholesterolemia sleep disturbance, obesity, osteoarthritis of the knees. .. Hypercholesterolemia:? Most recent lipid panel?showing elevated total cholesterol and LDL. He admits to some dietary indiscretion.. He is again not interested in starting any medication will like to work on extensively on lifestyle and dietary modifications. He will give it another six-month trial of lifestyle and dietary modification and strongly consider statin therapy if cholesterol remains elevated .. ? Impaired glucose metabolism: Patient has admitted to dietary indiscretion. Most recent fasting blood sugars slightly elevated fasting blood sugar and A1c in prediabetic range at 6.4. He has unfortunately gained weight .. Class 1 obesity: Unfortunately gained a few lb since last office visit Patient does understand his BMI is over 30 will work on being more physically active and adapting to better eating habits to reduce his weight . . Elevated PSA :? Has seen Urology and underwent prostate biopsy all with benign findings. Patient does have significantly enlarged prostate. Continue to follow PSA on a yearly basis. Colon cancer screen: Colonoscopy done in 2021 -repeat 5 years .. Vaccine : Up-to-date with tetanus, up-to-date with COVID vaccine. UTD pneumoni a and NEeds flu vaccine Laboratory Tests 07/02/25 07/03/25 07/07/25 06:52 07:43 09:15 RBC 4.53 L Hgb 14.3 Creatinine Fasting Glucose AST ALT Cholesterol 262 H LDL Cholesterol, C alc 175 H Prostate Specific Ag 8.38 H 09/08/25 08:50 RBC Hgb Creatinine 0.90 Fasting Glucose 131 H AST 44 H ALT 82 H Cholesterol 258 H LDL Cholesterol, C alc 169 H Prostate Specific Ag PFSH Medical History Sleep apnea with use of continuous positive airway pressure (CPAP) BPH (benign prostatic hyperplasia) Surgical History Hx of colonoscopy Cataract, left eye History of basal cell carcinoma excision S/P laparoscopic hernia repair Family History (Updated 09/15/25 @ 13:58 by Humberto Ayala PA-C) Father CAD (coronary artery disease) Mother Heart palpitations Daughter Diabetes Social History (Updated 09/15/25 @ 14:20 by Humberto Ayala PA-C) Housing: House Alcohol intake: current Alcohol intake frequency: 0-2 drinks per day Alcohol type: beer Patient Tobacco Use Status: Never used Tobacco e-Cigarette/Vaping Use: Never Used Second Hand Smoke Exposure: Yes service: No Current occupational status: employed Current occupation: [employer] Cognitive needs: No Hearing needs: No Vision needs: No Questionnaire PHQ-9 Over the last 2 weeks, how often have you been bothered by any of the following problems? 1. Little interest or pleasure in doing things: not at all 2. Feeling down, depressed, or hopeless: not at all 3. Trouble falling or staying asleep, or sleeping too much: not at all 4. Feeling tired or having little energy: not at all 5. Poor appetite or overeating: not at all 6. Feeling bad about yourself - or that you are a failure or have let yourself or your family down: not at all 7. Trouble concentrating on things, such as reading the newspaper or watching television: not at all 8. Moving or speaking so slowly that other people could have noticed. Or the opposite - being so fidgety or restless that you have been moving around a lot more than usual: not at all 9. Thoughts that you would be better off or of hurting yourself in some way: not at all Total score: 0 Depression Screening Interpretation: Negative Depression Screening Done: Yes 33363 - PHQ-9 Billing: Yes Source: Developed by Drs. Sd May, Evie Mccann, Reuben Haddad and colleagues, with an educational noé from [employer]. Thrive Questionnaire Date Thrive assessed: 09/08/25 I am a: Patient What is your living situation today?: I have a steady place to live Within the past 12 months, did the food you bought not last and you didn't have the money to get more?: Never true Within the past 12 months, did you worry whether your food would run out before you got money to buy more?: Never true Do you have trouble paying for medicines?: No Do you have trouble getting transportation to medical appointments?: No Do you have trouble paying your heating and electricity bill?: No Do you have trouble taking care of your child, family member or friend?: No Do you have trouble with day-to-day activities such as bathing, preparing meals, shopping, managing finances, etc.?: No Are you currently unemployed and looking for a job?: No Are you interested in more education?: No Please select the resources that you would like help with: None Currently or been in a relationship where the following occur: No concerns reported THRIVE Score: 0 AUDIT C Alcohol Use Questionnaire (AUDIT-C) 1. How often do you have a drink containing alcohol?: 2-3 times a week Total Score: 3 EBONIE-7 AMB Questionnaire EBONIE-7 Date EBONIE - 7 assessed: 07/07/25 Feeling nervous, anxious, or on edge: 0 = Not at all Not being able to stop or control worryin = Not at all Worrying too much about different things: 0 = Not at all Trouble relaxin = Not at all Being so restless that it is hard to sit still: 0 = Not at all Becoming easily annoyed or irritable: 0 = Not at all Feeling afraid as if something awful might happen: 0 = Not at all Total EBONIE-7 score (0-4 normal; 5-9 mild; 10-14 moderate; 15-21 severe): 0 Source: Developed by Evie Langley, Reuben Haddad and colleagues, with an educational noé from [employer]. Review of Systems Const Denies body aches, Denies chills, Denies excessive sweating, Denies fatigue, Denies fever(s) and Denies headache(s) Eyes Denies blurry vision ENT Denies dysphagia, Denies vertigo, Denies dizziness, Denies headache(s), Denies hearing loss and Denies tinnitus Card Denies chest pain, Denies chest pain with activity, Denies syncope, Denies irregular heart rhythm and Denies dyspnea Resp Denies chest congestion, Denies cough, Denies hemoptysis, Denies dyspnea and Denies wheezing GI Denies abdominal pain, Denies melena, Denies hematochezia, Denies coffee ground emesis, Denies dysphagia, Denies diarrhea, Denies nausea and Denies vomiting Denies difficulty urinating, Denies dysuria, Denies urinary frequency, Denies urinary hesitancy and Denies urinary urgency Musc Denies arthralgias, Denies limited range of motion, Denies muscle cramps and Denies muscle weakness Skin/Breast Denies rash and Denies skin ulcer Neuro Denies Abnormal speech present, Denies confusion, Denies vertigo, Denies dizziness, Denies syncope, Denies headache(s), Denies memory loss and Denies seizure-like activity Psych Denies anxiety, Denies confusion, Denies depression, Denies memory loss, Denies panic attacks and Denies paranoia Endo Denies excessive sweating, Denies fatigue, Denies flushing, Denies polydipsia and Denies polyuria Aller/Immun Denies wheezing Physical exam (Primary Care) Vital Signs: Last Vital Signs Temp 97.1 F 09/15/25 13:21 Pulse 55 09/15/25 13:21 BP 140/80 H 09/15/25 13:21 Pulse Ox 96 09/15/25 13:21 Oxygen Delivery Method Room Air 09/15/25 13:21 BMI result Body Mass Index 31.0 BMI Assessment/Plan discussion: High BMI High, discussed plan: lifestyle, weight reduction, dietary and physical activity Tobacco/Smoking Status: Tobacco use Status Tobacco use date assessed 09/15/25 09/15/25 13:24 Patient Tobacco Use Status Never used Tobacco 09/15/25 14:20 Tobacco use type 09/15/25 14:20 e-Cigarette/Vaping Use Never Used 09/15/25 14:20 PHQ-9: PHQ-9 Score PHQ-9: Total score 0 09/15/25 14:31 Depression Screening Interpretation: Negative Thrive Assessment: Date of Thrive Assessment Date Thrive assessed 09/08/25 09/15/25 13:24 Currently or been in a relationship where the following occur: No concerns reported Const General: cooperative, comfortable, no acute distress, alert and awake; No confusion Orientation/consciousness: oriented to person, oriented to place, patient oriented x3 and No confusion HENMT Head: Yes normocephalic Ears: external ears normal and TM's normal bilaterally Face and sinus: No sinus tenderness Mouth: Normal oral and palatal mucosa present and tongue normal Teeth and gingiva: dentition normal and gingiva normal Throat: Yes posterior oropharynx normal, Yes tonsils normal and Yes uvula midline Eyes Conjunctivae: conjunctivae normal Sclerae: sclerae normal Pupils: Equal, round and reactive pupils present EOM: EOMs intact bilaterally Direct Ophthalmoscopy: No no photophobia Neck Neck: Yes no lymphadenopathy, No tender and Yes no JVD Thyroid: Thyroid normal Carotids: no bruits Chest Chest palpation & inspection: no tenderness Resp Effort & Inspection: normal respiratory effort, no audible wheezes, not labored and no stridor Auscultation: no crackles, no rales, no rhonchi and no wheezes Cardio Jugular venous distension: no JVD Rate: regular rate, not bradycardic and not tachycardic Rhythm: regular rhythm Bruits: no carotid bruits Peripheral pulses: Peripheral pulses 2+ throughout GI Inspection: Yes normal to inspection, No abdominal wall ecchymosis and No visible herniation Palpation (GI): Soft to palpation, nontender, no guarding, not rigid and No hepatosplenomegaly present Auscultation: normoactive bowel sounds General: Yes no CVA tenderness Back/Spine/Pelvis Back: no CVA tenderness and No back tenderness Cervical Spine: cervical ROM normal Thoracic/Lumbar Spine: thoracic and lumbar spine normal to inspection, straight leg raise negative bilaterally, No thoraco-lumbar ROM limited and No lumbar spinal tenderness Skin Lesions: no lesions Rashes: no rashes Wounds: no wounds Neuro General: oriented to person, oriented to place, patient oriented x3, CN's II-XI intact bilaterally and No confusion Cranial nerves: Yes Equal, round and reactive pupils present and Yes Normal accommodation reflex present Cognition (Neuro): normal cognition Speech: No Abnormal speech present Gait exam (Neuro): Normal gait present Motor exam (neuro): 5/5 motor strength present throughout Extrem Right upper extremity: full ROM; no cyanosis Left upper extremity: full ROM; no cyanosis Right lower extremity: no edema Left lower extremity: no edema Psych Appearance: grossly normal Mental Status: mental status grossly normal Affect: normal affect Attitude: cooperative Thought process: Normal thought process present Office Procedures Flu Questionnaire Does the patient have a severe egg allergy?: No Does the patient have severe life threatening allergies?: No Does the patient have a fever or illness today?: No Has the patient ever had Guillain-Rochester Syndrome?: No Has the patient ever had any past reaction to a flu shot?: No Immunizations Fluarix [id number] (PF) 45 mcg (15 mcg x 3)/0.5 mL IM syringe Performing Provider: Humberto Ayala PA-C [place] [facility] Administered by: Isa Parker RN on 09/15/25 14:31 Dose Route Admin Location Dispensed Lot Number Expiration Date NDC Signaling Design Engineer 0.5 mL IM Left Deltoid 0.5 mL [id number] 05/18/26 [id number] Risk Management Solution VIS Given Date VIS Provided VIS Publication Date 09/15/25 Single Vaccine 24 Eligibility Eligibility Date Funding Source Not [facility] Eligible 09/15/25 Private Coding Level of Care Code Est Pt Prev Care >65y(22410) Diagnoses Annual physical exam Z00.00 Hypercholesteremia E78.00 Elevated blood pressure reading R03.0 Impaired glucose metabolism R73.09 Primary osteoarthritis of both knees M17.0 Osteoarthritis type: primary Class 1 obesity E66.811 BPH loc w urin obs/LUTS N40.1 Elevated liver enzymes R74.8 Additional Codes PHQ-9 - 94942 - PHQ-9 Billing: Yes ([id number]) Assessment & Plan Assessment & Plan (1) Annual physical exam: Code(s): Z00.00 - Encounter for general adult medical examination without abnormal findings Category: Medical Plan: As per HPI (2) Hypercholesteremia: Code(s): E78.00 - Pure hypercholesterolemia, unspecified Category: Medical Plan: Recommend dietary adjustments and regular monitoring to manage cholesterol levels. Strongly advised on starting statin therapy to reduce his cardiovascular risk though at this time he was not interested in medication and will like another six-month trial of lifestyle and dietary modification. (3) Elevated blood pressure reading: Code(s): R03.0 - Elevated blood-pressure reading, without diagnosis of hypertension Category: Medical Plan: Patient continues to decline offers to start antihypertensive medication. Monitor blood pressure at home and promote lifestyle changes. Avoided medication due to borderline levels. (4) Impaired glucose metabolism: Code(s): R73.09 - Other abnormal glucose Category: Medical Plan: Patient's most recent A1c elevated at 6.4 from 5.7. He does understand he is in a prediabetic range. Advise weight loss, diet, and exercise to prevent diabetes progression. (5) Degenerative arthritis of knee, bilateral: Code(s): M17.0 - Bilateral primary osteoarthritis of knee Category: Medical Qualifiers: Osteoarthritis type: primary Qualified Code(s): M17.0 - Bilateral primary osteoarthritis of knee Plan: Encourage continued physiotherapy and weight management, consider imaging if pain persists and limits function. (6) Class 1 obesity: Code(s): E66.811 - Obesity, class 1 Category: Medical Plan: Patient does understand his BMI is over 30 will work on being more physically active and adapting to better eating habits to reduce his weight (7) BPH loc w urin obs/LUTS: Code(s): N40.1 - Benign prostatic hyperplasia with lower urinary tract symptoms Category: Medical Plan: Patient followed by [facility], most recent biopsies of prostate her benign. Continues to have elevated PSA. (8) Elevated liver enzymes: Code(s): R74.8 - Abnormal levels of other serum enzymes Category: Medical Plan: Patient continues to have slightly elevated liver enzymes as well thus we discuss perhaps getting ultrasound of liver to evaluate for fatty liver he would like to hold off and work on lifestyle/ dietary modifications Orders: Orders Influenza [id number] Immunization 09/15/25 Z23 - Encounter for immunization Lipid Panel 09/15/25 E78.00 - Pure hypercholesterolemia, unspecified Complete Blood Count no Diff 09/15/25 E78.00 - Pure hypercholesterolemia, unspecified Hemoglobin A1c 09/15/25 R73.03 - Prediabetes Comprehensive [place]. Panel Fast 09/15/25 R73.03 - Prediabetes
[2025-09-15 13:21] VITALS: BP 140/80; PULSE 55; TEMP 36.2; O2SAT 96; BMI 31.0
--- OUTSIDE RECORDS SUMMARY | 2025-09-15 16:36 | XMS_ITS | Patient Health Record ---
Author Organization [facility] Address [address] [place] [id number] Care Team Providers Care Public Relations Professional Name Role Phone Humberto Ayala Primary Care Provider Sd Hood Unavailable [phone] Allergies Allergen (clinical drug ingredient) Drug/Non Drug [...] Problem Screening for malignant neoplasm of colon (797853874) Encounter for screening for malignant neoplasm of colon (Z12.11) Active confirmed Problem History of adenomatous polyp of colon (202813701) History of adenomatous polyp of colon (Z86.010) Active confirmed Problem Preprocedural examination ([id number]) Preprocedural examination (Z01.818) Active confirmed Problem History of polyp of colon (situation) (890169895) History of colon polyps (Z86.010) Active confirmed Problem Diverticulosis of colon (317695029) Diverticulosis of colon (K57.30) Active confirmed Plan Of Treatment Future Test Test Name Order Date COLONOSCOPY 05/05/2015 COLONOSCOPY 01/03/2022 Insurance Providers Payer Name Payer Address Payer Phone Subscriber Number Group Number Insured Name Patient Relationship to Insured Coverage Start Date Coverage End Date [facility] [employer] [address] [place] [address] [id number] Self - patient is the insured Medical (General) History Medical History History ICD Code Denies [place],DM,CVA,Lung disease,renal dise ase In 2007 he underwent [...]
== END 2025-09-15 14:32 | disposition home or self-care (01) ==
LOC: HO.HMCH 13:03
PROVIDERS: PCP Physician Assistant; Visit Provider Physician Assistant
DX: Z23 Encounter for immunization (principal)

== ENCOUNTER → 2025-09-15 13:02 | Outpatient (BNVA) | payer BC, SELFPAY | PROVIDERS: PCP Physician Assistant; Visit Provider Physician Assistant | DX: Z00.00 Encounter for general adult medical examination without abnormal findings (principal); E78.00 Pure hypercholesterolemia, unspecified; R73.9 Hyperglycemia, unspecified; E66.811 Obesity, class 1; R97.20 Elevated prostate specific antigen [PSA]; R03.0 Elevated blood-pressure reading, without diagnosis of hypertension; R73.09 Other abnormal glucose; M17.0 Bilateral primary osteoarthritis of knee; N40.1 Benign prostatic hyperplasia with lower urinary tract symptoms; R74.8 Abnormal levels of other serum enzymes; Z23 Encounter for immunization; Z68.31 Body mass index [BMI] 31.0-31.9, adult | CPT/HCPCS: 90471; 90656; 96127 ==

== ENCOUNTER 2025-09-18 14:39 | Outpatient (AMB) | payer BC, SELFPAY ==
--- NOTE | 2025-09-18 14:40 | A.OFFVIS_ITS ---
Intake Visit Reasons: Prostate biopsy results Intake Note: Patient presents today for Prsotate Bx Results Urology Meds-NONE Allergies to Antibiotic- Penicillins Blood Thinner- None Environmental Monitoring Specialist Required: No Accompanied by: Self / Same As Patient Allergies Penicillins Allergy (Mild, Verified 09/18/25 14:40) RASH finasteride Adverse Reaction (Intermediate, Verified 09/18/25 14:40) Dizziness HPI Comments Details: Ashia is a pleasant male. He is a patient of [facility]. He seen for the following urologic conditions - lower urinary tract symptoms - elevated PSA Follow-up from prostate biopsy Reported as no cancer and areas of inflammation Previously had tried Proscar but was dizzy Trial dutasteride Six-month follow-up repeat PSA Prostate measured at 75 cc 07/27/25--Fco is being followed for elevated PSA. He had prostate biopsy 09/28/2023 with benign pathology. The patient was started on finasteride, this was discontinued because of side effects of dizziness. The patient presents with repeat PSA and MRI. I have reviewed results MRI notes 1 focal area that is suspicious PSA has increased-- 07/03/25--8.38 -MR prostate-07/09/25--Left posterolateral peripheral zone at the apex measuring 5 mm. Plan MRI target biopsies of the prostate. 04/12/25--09/28/2023 Fco is a 69-year-old male who I have been following due to BPH and elevated PSA. The patient had a prostate biopsy for an elevated PSA of 5.38. Prostate biopsies came back benign. The patient was started on Proscar, 5 alpha reductase inhibitor therapy. Results discussed include repeat PSA performed 03/04/2025 was 4.81 ng/mL. Plan will be further evaluation with MRI of the prostate. 10/10/24-- Fco is a 69-year-old male who presents today for a one year FU for elevated PSA and BPH. He denies irritative voiding symptoms. He states he is voiding without difficulty. Continue tamsulosin and ordered Proscar 5 mg daily Follow-up in one year PSA prior. 10/10/2023--Fco is a 68-year-old male who presents today for a follow-up. He is followed today for biopsy results. PSA results from 08/18/2023 revealed 5.29. He is a status post prostate biopsy for elevated PSA which was done on 09/28/2023. Biopsy results were benign. I have reviewed the US results from 09/28/2023 showed the estimated measurement of the prostate was 75 mL. 05/28/23-- The patient complains having urinary symptoms of urgency and weak stream. Denies dysuria, or gross hematuria PSA results reviewed--05/04/23-- 5.38; PSA---08/01/23-- 4.98. AUA symptom score: 13. Prostate exam: moderately enlarged and a nodular area noted at the right apex. [facility] Medical History Sleep apnea with use of continuous positive airway pressure (CPAP) BPH (benign prostatic hyperplasia) Surgical History Hx of colonoscopy Cataract, left eye History of basal cell carcinoma excision S/P laparoscopic hernia repair Family History (Updated 09/15/25 @ 13:58 by Humberto Ayala PA-C) Father CAD (coronary artery disease) Mother Heart palpitations Daughter Diabetes Social History (Updated 09/15/25 @ 14:20 by Humberto Ayala PA-C) Housing: House Alcohol intake: current Alcohol intake frequency: 0-2 drinks per day Alcohol type: beer Patient Tobacco Use Status: Never used Tobacco e-Cigarette/Vaping Use: Never Used Second Hand Smoke Exposure: Yes service: No Current occupational status: employed Current occupation: [employer] Cognitive needs: No Hearing needs: No Vision needs: No Review of Systems Const Denies chills and Denies fever(s) Card Reports no additional complaints and Denies syncope Resp Denies cough GI Denies abdominal pain and Denies heartburn Reports as per HPI and Denies change in libido Neuro Denies syncope Psych Denies change in libido Endo Denies change in libido Physical Exam Const General: cooperative, healthy appearing, comfortable and no acute distress Orientation/consciousness: patient oriented x3 HEENT Face and sinus: Yes normal facial exam Mouth: moist mucous membranes Neck Neck: Yes normal visual inspection, Yes full ROM and Yes trachea midline Chest Chest palpation & inspection: normal inspection of the chest Resp Effort & Inspection: normal respiratory effort, able to speak in complete sentences and no respiratory distress GI Inspection: Yes normal to inspection Back/Spine/Pelvis Cervical Spine: normal cervical lordosis Thoracic/Lumbar Spine: thoracic and lumbar spine normal to inspection Skin General skin exam: no rashes or lesions noted Neuro General: patient oriented x3, gait normal, tone normal and moves all extremities Extrem General: Yes normal to inspection and Yes capillary refill normal Assessment & Plan Assessment & Plan (1) Elevated PSA: Code(s): R97.20 - Elevated prostate specific antigen [PSA] Category: Medical (2) BPH loc w urin obs/LUTS: Code(s): N40.1 - Benign prostatic hyperplasia with lower urinary tract symptoms Category: Medical Plan Six-month follow-up PSA Orders: Orders Prostate Specific Antigen 6 Months R97.20 - Elevated prostate specific antigen [PSA] Medications: New dutasteride 0.5 mg PO DAILY 90 caps 1RF 90 days N13.8 - Other obstructive and reflux uropathy, N40.1 - Benign prostatic hyperplasia with lower urinary tract symptoms Patient Instructions: This note is constructed using voice recognition software. While every effort has been made to ensure accuracy jacquard loom card changer errors may have been included. Imaging studies, laboratory and physical exam results were discussed and reviewed in detail. No major barriers to patient understanding were identified. An opportunity to ask questions regarding the treatment plan was provided. All questions were answered. The patient expressed understanding and agreement with the above treatment plan. The patient is aware they should contact our office by phone for worsening of their current condition or the appearance of new urologic symptoms. Compliance is encouraged with any medications and followup testing that is ordered. It is a privilege to participate in the urologic care of your patient. If you have any questions or concerns regarding treatment for the above conditions, or other urologic issues, please do not hesitate to contact me. The office telephone contact is [phone]. Sincerely, Dr Arturo Chong MD, [facility] - Urology Compassionate Specialist Care for the Genitourinary System Coding Level of Care Code Est Pt Level 3 (36326) Complex EM visit Add On G2211 Diagnoses Elevated PSA R97.20 BPH loc w urin obs/LUTS N40.1
--- OUTSIDE RECORDS SUMMARY | 2025-09-18 15:10 | XMS_ITS | Patient Health Record ---
Author Organization [facility] Address [address] [place] [id number] Care Team Providers Care Service Agent Name Role Phone Humberto Ayala Primary Care Provider Sd Hood Unavailable [phone] Allergies Allergen (clinical drug ingredient) Drug/Non Drug [...] Problem Screening for malignant neoplasm of colon (147348688) Encounter for screening for malignant neoplasm of colon (Z12.11) Active confirmed Problem History of adenomatous polyp of colon (896455316) History of adenomatous polyp of colon (Z86.010) Active confirmed Problem Preprocedural examination (048538809302767) Preprocedural examination (Z01.818) Active confirmed Problem History of polyp of colon (situation) (411985560) History of colon polyps (Z86.010) Active confirmed Problem Diverticulosis of colon (224063287) Diverticulosis of colon (K57.30) Active confirmed Plan Of Treatment Future Test Test Name Order Date COLONOSCOPY 05/05/2015 COLONOSCOPY 01/03/2022 Insurance Providers Payer Name Payer Address Payer Phone Subscriber Number Group Number Insured Name Patient Relationship to Insured Coverage Start Date Coverage End Date [facility] [employer] [address] [place] [address] [id number] Self - patient is the insured Medical (General) History Medical History History ICD Code Denies IA,DM,CVA,Lung disease,renal dise ase In 2007 he underwent [...]
== END 2025-09-18 15:13 | disposition home or self-care (01) ==
LOC: HO.HUSH 14:40
PROVIDERS: PCP Physician Assistant; Visit Provider Urology
DX: R97.20 Elevated prostate specific antigen [PSA] (principal); N40.1 Benign prostatic hyperplasia with lower urinary tract symptoms
CPT/HCPCS: 99213